=== PATIENT | male | born 1975 | race Caucasian/White ===

== ENCOUNTER 2021-11-21 09:52 | Inpatient (IN) | payer OTHER, SELFPAY ==
[2021-11-21] VITALS (13 sets, daily range): BP systolic 82–145; BP diastolic 37–67; PULSE 92–119; RESP 14–27; TEMP 36.9–37.9; O2SAT 24–100; BMI 28.1
--- NOTE | 2021-11-21 | ECG_ITS ---
Test Reason : ETHOL DETOX Blood Pressure : / mmHG Vent. Rate : 116 BPM Atrial Rate : 116 BPM P-R Int : 158 ms QRS Dur : 086 ms QT Int : 340 ms P-R-T Axes : 062 058 053 degrees QTc Int : 472 ms Sinus tachycardia Otherwise normal ECG No previous ECGs available Referred By: Generic ED Physician Electronically Signed By:ESTEFANIA CARCAMO
--- NOTE | ~2021-11-21 | CT_ITS ---
EXAMINATION: CT ABDOMEN AND PELVIS WITHOUT CONTRAST CLINICAL INFORMATION: Nausea, vomiting and low-grade fever COMPARISON: None TECHNIQUE: Multidetector volumetric imaging was performed from the superior aspect of the liver through the pubic symphysis. Sagittal and coronal reformatted images were obtained on the technologist's workstation. This CT examination was performed using dose optimization techniques as appropriate, variously including the following: *Automated exposure control *Adjustment of mA and/or kV according to patient size (this includes techniques or standardized protocols for targeted exams where dose is matched to indication/reason for exam; i.e. extremities or head) *Use of iterative reconstruction technique DLP: 535 mGy-cm FINDINGS: Exam is limited due to motion artifact. LUNG BASES: The visualized lung bases are unremarkable. LIVER, GALLBLADDER, AND BILIARY TREE: The liver is low in attenuation suggestive of fatty infiltration. No focal hepatic lesion or biliary ductal dilatation is present. The gallbladder is unremarkable with no evidence of radiopaque gallstones, gallbladder wall thickening, or obvious pericholecystic inflammatory changes. PANCREAS: Unremarkable. SPLEEN: Unremarkable. ADRENAL GLANDS: Unremarkable. KIDNEYS AND URETERS: The kidneys are normal in size, shape, and attenuation. No hydronephrosis, hydroureter, or calculi seen. No perinephric stranding. BLADDER: Unremarkable. GASTROINTESTINAL TRACT: The small and large bowel are unremarkable. The appendix is unremarkable. ABDOMINAL WALL: No significant hernia is appreciated. LYMPH NODES: Normal. VASCULAR: Unremarkable. PELVIC VISCERA: Unremarkable. OSSEOUS STRUCTURES: Unremarkable. CT/CT abdomen pelvis wo con IMPRESSION: Limited exam due to motion artifact. Fatty liver. Fleischner guidelines were followed.
--- NOTE | ~2021-11-21 | XR_ITS ---
EXAMINATION: XR CHEST CLINICAL INFORMATION: Fever COMPARISON: None TECHNIQUE: Portable upright AP view of the chest was obtained. FINDINGS: There are low lung volumes with inspiration to the right posterior eighth intercostal space. The lungs are clear and there is no airspace consolidation or groundglass opacity or effusion. The heart is within the limits of normal size. The vascularity is normal. The hilar and mediastinal contours and visualized bony structures are unremarkable. XR/XR chest 1V IMPRESSION: Unremarkable examination.
--- NOTE | ~2021-11-21 | CT_ITS ---
EXAMINATION: CT HEAD WITHOUT CONTRAST CLINICAL INFORMATION: Fall COMPARISON: None TECHNIQUE: Contiguous axial imaging was performed from the skull base to vertex without intravenous administration of contrast. Exam is limited due to motion artifact. Additional axial images were obtained. This CT examination was performed using dose optimization techniques as appropriate, variously including the following: *Automated exposure control *Adjustment of mA and/or kV according to patient size (this includes techniques or standardized protocols for targeted exams where dose is matched to indication/reason for exam; i.e. extremities or head) *Use of iterative reconstruction technique DLP: 1251 mGy-cm FINDINGS: There is no evidence of acute intracranial hemorrhage or territorial infarction. No abnormal mass effect or midline shift is seen. [place] to white matter differentiation is well preserved. No extra-axial fluid collections are identified. The ventricles are normal in size. There is no abnormal attenuation within the brain parenchyma. The osseous structures and soft tissues are normal. There are mild inflammatory changes in the floor of both maxillary sinuses. CT/CT head/brain wo con IMPRESSION: Limited exam due to motion artifact. No acute findings. Mild inflammatory changes in the maxillary sinuses.
[2021-11-21] MEDS: LORazepam 2 MG/ML VIAL IVPUSH ×2 (10:32→11:50)
[2021-11-21] MEDS: 0.9 % Sodium Chloride 1,000 ML 999 ML IV (10:57)
[2021-11-21 11:08] LABS: MANUAL DIFF FLAG NO
[2021-11-21 11:13] LABS: Basophils Percent Auto 0.2 % (0-2); Hematocrit 41.5 % (42.0-52.0); Hemoglobin 14.4 g/dl (14.0-18.0); Imm Gran Abs Auto 0.04 X10*3/uL (0.00-0.03); Imm Gran Pct Auto 0.4 % (0.0-0.4); Lymphocytes Absolute Auto 0.5 X10*3/uL (1.2-4.9); Lymphocytes Percent Auto 4.6 % (20-40); Mean Corpuscular HGB Conc 34.7 g/dl (31.0-36.0); Mean Corpuscular Hemoglobin 32.6 pg (27.0-33.0); Mean Corpuscular Volume 93.9 fL (80.0-98.0); Mean Platelet Volume 9.2 fL (9.4-12.4); Monocytes Absolute Auto 0.7 X10*3/uL (0.1-1.2); Monocytes Percent Auto 6.9 % (2-11); Neutrophils Absolute Auto 8.9 x10*3/uL (2.0-8.3); Neutrophils Percent Auto 87.9 % (45-73); Platelet Count 147 X10*3/uL (160-400); Red Blood Count 4.42 X10*6/uL (4.60-5.80); Red Cell Distribution Width 12.3 % (11.0-16.0); White Blood Count 10.2 X10*3/uL (4.8-10.8)
[2021-11-21 11:32] LABS: Ethanol < 10 mg/dL
[2021-11-21 11:34] LABS: Alanine Aminotransferase 69 U/L (0-40); Albumin Level 3.1 g/dL (3.5-5.0); Alkaline Phosphatase 89 U/L (39-117); Anion Gap 24 (12-20); Aspartate Amino Transferase 131 U/L (5-37); Bilirubin Direct 0.7 mg/dL (0.0-0.5); Bilirubin Total 1.2 mg/dL (0.0-1.0); Blood Urea Nitrogen 9 mg/dL (9-16); Calcium 8.5 mg/dL (8.4-10.2); Carbon Dioxide 17 mmol/L (22-29); Chloride 90 mmol/L (96-108); Creatinine Clr Calc Pharmacy 109.1; Estimated Glomerular Filt Rate > 60; Glucose Random 115 mg/dL (60-115); Lipase 51 U/L (8-78); Magnesium 1.8 mg/dL (1.6-2.6); Potassium 4.9 mmol/L (3.3-5.1); Sodium 126 mmol/L (135-145); Total Protein 6.4 g/dL (6.5-8.0)
[2021-11-21 11:35] LABS: Lactic Acid 10.1 mmol/L (0.5-2.0)
[2021-11-21 11:39] LABS: IDNOW Serial# 16C4AD1C
--- NOTE | 2021-11-21 11:39 | ED.GENADULT ---
HPI - General Adult General Chief complaint: General Medical <JOCELYN Haddad - Last Filed: 11/21/21 17:24> Stated complaint: ALCOHOL WITHDRAWAL <JOCELYN Haddad - Last Filed: 11/21/21 17:24> Time Seen by Provider: 11/21/21 10:21 <JOCELYN Haddad - Last Filed: 11/21/21 17:24> Source: patient <JOCELYN Haddad - Last Filed: 11/21/21 17:24> Mode of arrival: ambulatory <JOCELYN Haddad - Last Filed: 11/21/21 17:24> History of Present Illness HPI narrative: 46-year-old male with a PMH ETOH abuse presented to the ED complaining ETOH withdrawal, feeling tremulous, nausea, vomiting, diarrhea since last night. Admits to drinking 6-12 beers a day last drink around 22:00 last night. Also reports fall with head trauma about a week ago, denies LOC. 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 Denies other illicit drug use. Denies fever, chills, cough, CP/SOB, abdominal pain <JOCELYN Haddad - Last Filed: 11/21/21 17:24> Onset (ago): hour(s) <JOCELYN Haddad - Last Filed: 11/21/21 17:24> Related Data Home medications: Previous Rx's Medication Instructions Recorded folic acid 1 mg tablet 1 mg PO DAILY 30 Days #30 tab 11/24/21 naltrexone 50 mg tablet 50 mg PO DAILY #30 tab 11/24/21 thiamine HCl (vitamin B1) 100 mg 100 mg PO DAILY 30 Days #30 tab 11/24/21 tablet <JOCELYN Haddad - Last Filed: 11/21/21 17:24> Allergies/adverse reactions: Allergies Allergy/AdvReac Type Severity Reaction Status Date / Time No Known Drug Allergies Allergy Unknown Verified 11/21/21 10:19 <JOCELYN Haddad Last Filed: 11/21/21 17:24> Review of Systems Review of Systems: Constitutional: No Fever, No Chills, No Fatigue, No Malaise, +tremulous ENT/Mouth: No Ear Pain, No Nasal Congestion, No Sinus Pain, No Hoarseness, No sore throat, No Rhinorrhea Eyes: No Eye Pain, No Swelling, No Redness, No Foreign Body, No Discharge, No Vision Changes Cardiovascular: No Chest Pain, No SOB, No Edema, No Palpitations Respiratory: No Cough, No Sputum, No Dyspnea Gastrointestinal: + Nausea, + Vomiting, + Diarrhea, No Constipation, + Abdominal pain Genitourinary: No irregular bleeding, No Dysuria, No Urinary Frequency, No Hematuria, No Flank Pain, No Urinary Flow Changes Musculoskeletal: No joint pain, No Myalgias, No Joint Swelling Skin: + Skin Lesions, No rash Neuro: No Weakness, No Numbness, No Loss of Consciousness, No Dizziness, No Headache Psych: No Anxiety/Panic, No Depression, No SI/HI/AH/VH, No Social Issues <JOCELYN Haddad - Last Filed: 11/21/21 17:24> Yes all other systems are reviewed and are negative <JOCELYN Haddad - Last Filed: 11/21/21 17:24> Neurologic: Denies Abnormal speech present <JOCELYN Haddad - Last Filed: 11/21/21 17:24> [facility] Past Medical History Attestation statement: The following information was validated with the patient. <JOCELYN Haddad - Last Filed: 11/21/21 17:24> Social History Social History: Social History Household Members: Family Housing: House Do you presently have visiting nurse or other home services: No Alcohol intake: current Alcohol intake frequency: 3 or more drinks per day Alcohol type: beer Patient Tobacco Use Status: Current everyday Tobacco user Tobacco use type: Cigarette Cigarettes Per Day: 8 service: No <OJCELYN Haddad - Last Filed: 11/21/21 17:24> Physical Exam ED Vital Signs: Vital Signs - 24 hr 11/21/21 10:14 11/21/21 11:47 11/21/21 12:02 Temperature 99 F 100.2 F 100.1 F Pulse Rate 118 H 113 H 116 H Respiratory Rate 24 H 24 H 27 H Blood Pressure 139/56 L 94/40 L Pulse Oximetry 100 97 11/21/21 13:24 11/21/21 14:17 11/21/21 14:28 Temperature 98.4 F 98.6 F Pulse Rate 115 H 103 H Respiratory Rate 23 H 20 Blood Pressure 84/37 L 86/41 L 96/57 L Pulse Oximetry 97 94 11/21/21 15:17 11/21/21 15:21 11/21/21 15:54 Temperature Pulse Rate 100 Respiratory Rate 26 H Blood Pressure 82/44 L 86/45 L 92/54 L Pulse Oximetry 95 11/21/21 16:31 Temperature Pulse Rate 109 H Respiratory Rate 27 H Blood Pressure 93/51 L Pulse Oximetry 96 BMI result Body Mass Index 28.1 <JOCELYN Haddad - Last Filed: 11/21/21 17:24> Vital Signs - 24 hr 11/21/21 10:14 11/21/21 11:47 11/21/21 12:02 Temperature 99 F 100.2 F 100.1 F Pulse Rate 118 H 113 H 116 H Respiratory Rate 24 H 24 H 27 H Blood Pressure 139/56 L 94/40 L Pulse Oximetry 100 97 11/21/21 13:24 11/21/21 14:17 11/21/21 14:28 Temperature 98.4 F 98.6 F Pulse Rate 115 H 103 H Respiratory Rate 23 H 20 Blood Pressure 84/37 L 86/41 L 96/57 L Pulse Oximetry 97 94 11/21/21 15:17 11/21/21 15:21 11/21/21 15:54 Temperature Pulse Rate 100 Respiratory Rate 26 H Blood Pressure 82/44 L 86/45 L 92/54 L Pulse Oximetry 95 11/21/21 16:31 Temperature Pulse Rate 109 H Respiratory Rate 27 H Blood Pressure 93/51 L Pulse Oximetry 96 BMI result Body Mass Index 28.1 <Buck Duggan MD - Last Filed: 11/21/21 14:02> Const Other: + tremulous, diaphoretic, no tongue fasciculations <JOCELYN Haddad Last Filed: 11/21/21 17:24> General: cooperative, alert and awake <JOCELYN Haddad Last Filed: 11/21/21 17:24> Orientation/consciousness: patient oriented x3 <JOCELYN Haddad Last Filed: 11/21/21 17:24> Limitations: no limitations <JOCELYN Haddad Last Filed: 11/21/21 17:24> HENMT Head: Yes normal to inspection and Yes atraumatic <Silvia Alfaro PA - Last Filed: 11/21/21 17:24> Ears: hearing grossly normal bilaterally <Silvia Alfaro PA - Last Filed: 11/21/21 17:24> General nose exam: Normal external nose present <Silvia Alfaro MS - Last Filed: 11/21/21 17:24> Face and sinus: Yes normal facial exam <Silvia Alfaro PA - Last Filed: 11/21/21 17:24> Mouth: mucous membranes dry <Silvia Alfaro MS - Last Filed: 11/21/21 17:24> Eyes General: appearance normal, both eyes and all related structures <Silvia Alfaro PA - Last Filed: 11/21/21 17:24> EOM: EOMs intact bilaterally <Silvia Alfaro MS - Last Filed: 11/21/21 17:24> Neck Neck: Yes normal visual inspection and Yes no meningeal signs <Silvia Alfaro PA - Last Filed: 11/21/21 17:24> Resp Effort & Inspection: normal respiratory effort and no respiratory distress <Silvia Alfaro PA - Last Filed: 11/21/21 17:24> Auscultation: clear to auscultation bilaterally <Silvia Alfaro PA - Last Filed: 11/21/21 17:24> Cardio Rate: regular rate <Silvia Alfaro MS - Last Filed: 11/21/21 17:24> Heart sounds: S1 normal heart sound present and S2 normal heart sound present <Silvia Alfaro PA - Last Filed: 11/21/21 17:24> GI Inspection: Yes normal to inspection <Silvia Alfaro PA - Last Filed: 11/21/21 17:24> Palpation (GI): Soft to palpation, nontender, no guarding and not rigid <Silvia Alfaro PA - Last Filed: 11/21/21 17:24> Skin Other: + healing abrasions/scabs noted to right forehead and right eyebrow <Silvia Alfaro PA - Last Filed: 03/14/22 17:24> Rashes: no rashes <JOCELYN Haddad - Last Filed: 11/21/21 17:24> Neuro General: patient oriented x3, tone normal, moves all extremities, no meningeal signs, no focal motor deficits and CN's II-XI intact bilaterally <JOCELYN Haddad - Last Filed: 11/21/21 17:24> Cognition (Neuro): normal cognition <JOCELYN Haddad - Last Filed: 11/21/21 17:24> Speech: No Abnormal speech present <JOCELYN Haddad - Last Filed: 11/21/21 17:24> Extrem General: Yes normal to inspection and Yes no pedal edema <JOCELYN Haddad - Last Filed: 11/21/21 17:24> Course Course Course Narrative: 1143-- no leukocytosis. Hyponatremic to 126, bicarb low at 17 with an anion gap of 24 > likely from lactic acidosis of 10.1 and ketosis rather than severe sepsis -1153--patient spiked low-grade fever 100.2 > Blood cultures, additional IVF and empiric IV antibiotics ordered. likely from tremulousness -AST/ALT and bilirubin elevated likely from ETOH abuse -head CT without acute findings -1336--BP's low likely from volume depletion, still low suspicion for severe sepsis -1400-- Case d/w Dr. Duggan who evaluated patient with me, bedside US showing collapsible IVC, hypotension and lactic acidosis more c/w dehydration. Additional IVF ordered (4th Liter). Will consult nurse school -1433--CT/AP with fatty liver otherwise unremarkable -Case c/w nurse school Dr. Garcia, presentation c/w dehydration rather than sepsis, recommended initiation 200 cc/hour of LR at this time, patient does not need ICU level care <JOCELYN Haddad - Last Filed: 11/21/21 17:24> Reevaluation(s) Reevaluation #1: patient clinically not septic, appears to be in alcohol withdrawal, bedside Ultrasound show flat inferior vena cava, will continue with fluids and have patient evaluated by ICU attending. <Buck Duggan MD - Last Filed: 11/21/21 14:02> Time: 14:02 <Buck Duggan MD - Last Filed: 11/21/21 14:02> Medical Decision Making MDM Narrative Medical decision making narrative: 46-year-old male with a PMH ETOH abuse presented to the ED complaining ETOH withdrawal, feeling tremulous, nausea, vomiting, diarrhea since last night. On exam tachycardic, tachypneic, tremulous, diaphoretic, alert, no focal deficits, MALCOL[place]. Concern for EtOH withdrawal. Concern for dehydration/metabolic abnormalities. Lower concern for infectious etiology. Low concern for sepsis at this time. Plan: EKG, labs, UA, CXR, Head CT, CXR, IVF, Ativan, Phenobarb protocol <JOCELYN Haddad - Last Filed: 11/21/21 17:24> Medical Records Medical records reviewed: Yes I reviewed the patient's medical records. <JOCELYN Haddad - Last Filed: 11/21/21 17:24> Lab Data Lab results reviewed: Yes I reviewed the patient's lab results. <JOCELYN Haddad - Last Filed: 11/21/21 17:24> Result diagrams: : 11/21/21 11:03 11/23/21 06:10 <JOCELYN Haddad - Last Filed: 11/21/21 17:24> Labs: Lab Results 11/21/21 11/21/21 11/21/21 Range/Units 11:03 11:03 11:03 WBC 10.2 (4.8-10.8) X10*3/uL RBC 4.42 L (4.60-5.80) X10*6/uL Hgb 14.4 (14.0-18.0) g/dl Hct 41.5 L (42.0-52.0) % MCV 93.9 (80.0-98.0) fL MCH 32.6 (27.0-33.0) pg MCHC 34.7 (31.0-36.0) g/dl RDW 12.3 (11.0-16.0) % Plt Count 147 L (160-400) X10*3/uL MPV 9.2 L (9.4-12.4) fL Immature Gran % (Auto) 0.4 (0.0-0.4) % Neut % (Auto) 87.9 H (45-73) % Lymph % (Auto) 4.6 L (20-40) % [place] % (Auto) 6.9 (2-11) % Eos % (Auto) 0.0 (0-4) % Baso % (Auto) 0.2 (0-2) % Lymph # (Auto) 0.5 L (1.2-4.9) X10*3/uL [place] # (Auto) 0.7 (0.1-1.2) X10*3/uL Eos # (Auto) 0.0 (0.0-0.4) X10*3/uL Baso # (Auto) 0.0 (0.0-0.2) X10*3/uL Abs Immat Gran (auto) 0.04 H (0.00-0.03) X10*3/uL Absolute Neuts (auto) 8.9 H (2.0-8.3) x10*3/uL Absolute Nucleated RBC 0.000 (0.0-0.012) X10*3/uL Nucleated RBC % (auto) 0.0 (0.0-0.2) /100WBC VBG pH (7.32-7.43) VBG pCO2 mmHg VBG pO2 mmHg VBG HCO3 (22-26) mmol/L VBG O2 Saturation % VBG Base Excess mmol/L Sodium 126 L (135-145) mmol/L Potassium 4.9 (3.3-5.1) mmol/L Chloride 90 L (96-108) mmol/L Carbon Dioxide 17 L (22-29) mmol/L Anion Gap 24 H (12-20) BUN 9 (9-16) mg/dL Creatinine 0.97 (0.5-1.4) mg/dL Estim Creat Clear Calc 109.1 Estimated GFR > 60 Random Glucose 115 (60-115) mg/dL Osmolality (281-305) mosm/kg Lactic Acid (0.5-2.0) mmol/L Lactic Acid F/U @ 2Hr (0.5-2.0) mmol/L Calcium 8.5 (8.4-10.2) mg/dL Magnesium 1.8 (1.6-2.6) mg/dL Total Bilirubin 1.2 H (0.0-1.0) mg/dL Direct Bilirubin 0.7 H (0.0-0.5) mg/dL AST 131 H (5-37) U/L ALT 69 H (0-40) U/L Alkaline Phosphatase 89 (39-117) U/L Total Creatine Kinase (38-174) U/L Total Protein 6.4 L (6.5-8.0) g/dL Albumin 3.1 L (3.5-5.0) g/dL Lipase 51 (8-78) U/L Procalcitonin ng/mL Urine Color Urine Appearance Urine pH (5.0-8.0) Ur Specific [place] (1.005-1.025) Urine Protein (NEG-TRACE) MG/DL Urine Glucose (UA) (NEG) MG/DL Urine Ketones (NEG) MG/DL Urine Blood (NEG) Urine Nitrite (NEG) Ur Leukocyte Esterase (NEG) Urine Osmolality (373-1093) mosm/kg Salicylates < 5.0 L (15-30) mg/dL Urine Opiates Screen (Not Detect) Urine Fentanyl Screen (Not Detect) Acetaminophen < 1 (<30) mcg/mL Ur Barbiturates Screen (Not Detect) Ur Phencyclidine Scrn (Not Detect) Ur Amphetamines Screen (Not Detect) U Benzodiazepines Scrn (Not Detect) Urine Cocaine Screen (Not Detect) U Marijuana (THC) Screen (Not Detect) Ethyl Alcohol < 10 mg/dL COVID-19 ([facility]) (Negative) COVID-19 Clin Com Influenza Type A (DEBBY) (Negative) Influenza Type B (DEBBY) (Negative) Influenza A & B Note 11/21/21 11/21/21 11/21/21 Range/Units 11:03 11:03 11:04 WBC (4.8-10.8) X10*3/uL RBC (4.60-5.80) X10*6/uL Hgb (14.0-18.0) g/dl Hct (42.0-52.0) % MCV (80.0-98.0) fL MCH (27.0-33.0) pg MCHC (31.0-36.0) g/dl RDW (11.0-16.0) % Plt Count (160-400) X10*3/uL MPV (9.4-12.4) fL Immature Gran % (Auto) (0.0-0.4) % Neut % (Auto) (45-73) % Lymph % (Auto) (20-40) % [place] % (Auto) (2-11) % Eos % (Auto) (0-4) % Baso % (Auto) (0-2) % Lymph # (Auto) (1.2-4.9) X10*3/uL [place] # (Auto) (0.1-1.2) X10*3/uL Eos # (Auto) (0.0-0.4) X10*3/uL Baso # (Auto) (0.0-0.2) X10*3/uL Abs Immat Gran (auto) (0.00-0.03) X10*3/uL Absolute Neuts (auto) (2.0-8.3) x10*3/uL Absolute Nucleated RBC (0.0-0.012) X10*3/uL Nucleated RBC % (auto) (0.0-0.2) /100WBC VBG pH (7.32-7.43) VBG pCO2 mmHg VBG pO2 mmHg VBG HCO3 (22-26) mmol/L VBG O2 Saturation % VBG Base Excess mmol/L Sodium (135-145) mmol/L Potassium (3.3-5.1) mmol/L Chloride (96-108) mmol/L Carbon Dioxide (22-29) mmol/L Anion Gap (12-20) BUN (9-16) mg/dL Creatinine (0.5-1.4) mg/dL Estim Creat Clear Calc Estimated GFR Random Glucose (60-115) mg/dL Osmolality 268 L (281-305) mosm/kg Lactic Acid 10.1 H* (0.5-2.0) mmol/L Lactic Acid F/U @ 2Hr (0.5-2.0) mmol/L Calcium (8.4-10.2) mg/dL Magnesium (1.6-2.6) mg/dL Total Bilirubin (0.0-1.0) mg/dL Direct Bilirubin (0.0-0.5) mg/dL AST (5-37) U/L ALT (0-40) U/L Alkaline Phosphatase (39-117) U/L Total Creatine Kinase (38-174) U/L Total Protein (6.5-8.0) g/dL Albumin (3.5-5.0) g/dL Lipase (8-78) U/L Procalcitonin ng/mL Urine Color Urine Appearance Urine pH (5.0-8.0) Ur Specific [place] (1.005-1.025) Urine Protein (NEG-TRACE) MG/DL Urine Glucose (UA) (NEG) MG/DL Urine Ketones (NEG) MG/DL Urine Blood (NEG) Urine Nitrite (NEG) Ur Leukocyte Esterase (NEG) Urine Osmolality (373-1093) mosm/kg Salicylates (15-30) mg/dL Urine Opiates Screen (Not Detect) Urine Fentanyl Screen (Not Detect) Acetaminophen (<30) mcg/mL Ur Barbiturates Screen (Not Detect) Ur Phencyclidine Scrn (Not Detect) Ur Amphetamines Screen (Not Detect) U Benzodiazepines Scrn (Not Detect) Urine Cocaine Screen (Not Detect) U Marijuana (THC) Screen (Not Detect) Ethyl Alcohol mg/dL COVID-19 ([facility]) Negative (Negative) COVID-19 Clin Com See Note Influenza Type A (DEBBY) (Negative) Influenza Type B (DEBBY) (Negative) Influenza A & B Note 11/21/21 11/21/21 11/21/21 Range/Units 12:19 13:46 13:46 WBC (4.8-10.8) X10*3/uL RBC (4.60-5.80) X10*6/uL Hgb (14.0-18.0) g/dl Hct (42.0-52.0) % MCV (80.0-98.0) fL MCH (27.0-33.0) pg MCHC (31.0-36.0) g/dl RDW (11.0-16.0) % Plt Count (160-400) X10*3/uL MPV (9.4-12.4) fL Immature Gran % (Auto) (0.0-0.4) % Neut % (Auto) (45-73) % Lymph % (Auto) (20-40) % [place] % (Auto) (2-11) % Eos % (Auto) (0-4) % Baso % (Auto) (0-2) % Lymph # (Auto) (1.2-4.9) X10*3/uL [place] # (Auto) (0.1-1.2) X10*3/uL Eos # (Auto) (0.0-0.4) X10*3/uL Baso # (Auto) (0.0-0.2) X10*3/uL Abs Immat Gran (auto) (0.00-0.03) X10*3/uL Absolute Neuts (auto) (2.0-8.3) x10*3/uL Absolute Nucleated RBC (0.0-0.012) X10*3/uL Nucleated RBC % (auto) (0.0-0.2) /100WBC VBG pH (7.32-7.43) VBG pCO2 mmHg VBG pO2 mmHg VBG HCO3 (22-26) mmol/L VBG O2 Saturation % VBG Base Excess mmol/L Sodium (135-145) mmol/L Potassium (3.3-5.1) mmol/L Chloride (96-108) mmol/L Carbon Dioxide (22-29) mmol/L Anion Gap (12-20) BUN (9-16) mg/dL Creatinine (0.5-1.4) mg/dL Estim Creat Clear Calc Estimated GFR Random Glucose (60-115) mg/dL Osmolality (281-305) mosm/kg Lactic Acid Cancelled (0.5-2.0) mmol/L Lactic Acid F/U @ 2Hr 7.1 H* (0.5-2.0) mmol/L Calcium (8.4-10.2) mg/dL Magnesium (1.6-2.6) mg/dL Total Bilirubin (0.0-1.0) mg/dL Direct Bilirubin (0.0-0.5) mg/dL AST (5-37) U/L ALT (0-40) U/L Alkaline Phosphatase (39-117) U/L Total Creatine Kinase (38-174) U/L Total Protein (6.5-8.0) g/dL Albumin (3.5-5.0) g/dL Lipase (8-78) U/L Procalcitonin ng/mL Urine Color Urine Appearance Urine pH (5.0-8.0) Ur Specific [place] (1.005-1.025) Urine Protein (NEG-TRACE) MG/DL Urine Glucose (UA) (NEG) MG/DL Urine Ketones (NEG) MG/DL Urine Blood (NEG) Urine Nitrite (NEG) Ur Leukocyte Esterase (NEG) Urine Osmolality (373-1093) mosm/kg Salicylates (15-30) mg/dL Urine Opiates Screen (Not Detect) Urine Fentanyl Screen (Not Detect) Acetaminophen (<30) mcg/mL Ur Barbiturates Screen (Not Detect) Ur Phencyclidine Scrn (Not Detect) Ur Amphetamines Screen (Not Detect) U Benzodiazepines Scrn (Not Detect) Urine Cocaine Screen (Not Detect) U Marijuana (THC) Screen (Not Detect) Ethyl Alcohol mg/dL COVID-19 ([facility]) (Negative) COVID-19 Clin Com Influenza Type A (DEBBY) Negative (Negative) Influenza Type B (DEBBY) Negative (Negative) Influenza A & B Note See Note 11/21/21 11/21/21 11/21/21 Range/Units 14:52 14:55 14:57 WBC (4.8-10.8) X10*3/uL RBC (4.60-5.80) X10*6/uL Hgb (14.0-18.0) g/dl Hct (42.0-52.0) % MCV (80.0-98.0) fL MCH (27.0-33.0) pg MCHC (31.0-36.0) g/dl RDW (11.0-16.0) % Plt Count (160-400) X10*3/uL MPV (9.4-12.4) fL Immature Gran % (Auto) (0.0-0.4) % Neut % (Auto) (45-73) % Lymph % (Auto) (20-40) % [place] % (Auto) (2-11) % Eos % (Auto) (0-4) % Baso % (Auto) (0-2) % Lymph # (Auto) (1.2-4.9) X10*3/uL [place] # (Auto) (0.1-1.2) X10*3/uL Eos # (Auto) (0.0-0.4) X10*3/uL Baso # (Auto) (0.0-0.2) X10*3/uL Abs Immat Gran (auto) (0.00-0.03) X10*3/uL Absolute Neuts (auto) (2.0-8.3) x10*3/uL Absolute Nucleated RBC (0.0-0.012) X10*3/uL Nucleated RBC % (auto) (0.0-0.2) /100WBC VBG pH 7.51 H (7.32-7.43) VBG pCO2 29 mmHg VBG pO2 91 mmHg VBG HCO3 23 (22-26) mmol/L VBG O2 Saturation 98.0 % VBG Base Excess 1.9 mmol/L Sodium 128 L (135-145) mmol/L Potassium 4.5 (3.3-5.1) mmol/L Chloride 95 L (96-108) mmol/L Carbon Dioxide 23 (22-29) mmol/L Anion Gap 15 (12-20) BUN 9 (9-16) mg/dL Creatinine 0.85 (0.5-1.4) mg/dL Estim Creat Clear Calc 124.6 Estimated GFR > 60 Random Glucose 85 (60-115) mg/dL Osmolality (281-305) mosm/kg Lactic Acid (0.5-2.0) mmol/L Lactic Acid F/U @ 2Hr (0.5-2.0) mmol/L Calcium 7.9 L D (8.4-10.2) mg/dL Magnesium (1.6-2.6) mg/dL Total Bilirubin (0.0-1.0) mg/dL Direct Bilirubin (0.0-0.5) mg/dL AST (5-37) U/L ALT (0-40) U/L Alkaline Phosphatase (39-117) U/L Total Creatine Kinase 936 H (38-174) U/L Total Protein (6.5-8.0) g/dL Albumin (3.5-5.0) g/dL Lipase (8-78) U/L Procalcitonin 0.10 ng/mL Urine Color Urine Appearance Urine pH (5.0-8.0) Ur Specific [place] (1.005-1.025) Urine Protein (NEG-TRACE) MG/DL Urine Glucose (UA) (NEG) MG/DL Urine Ketones (NEG) MG/DL Urine Blood (NEG) Urine Nitrite (NEG) Ur Leukocyte Esterase (NEG) Urine Osmolality (373-1093) mosm/kg Salicylates (15-30) mg/dL Urine Opiates Screen (Not Detect) Urine Fentanyl Screen (Not Detect) Acetaminophen (<30) mcg/mL Ur Barbiturates Screen (Not Detect) Ur Phencyclidine Scrn (Not Detect) Ur Amphetamines Screen (Not Detect) U Benzodiazepines Scrn (Not Detect) Urine Cocaine Screen (Not Detect) U Marijuana (THC) Screen (Not Detect) Ethyl Alcohol mg/dL COVID-19 ([facility]) (Negative) COVID-19 Clin Com Influenza Type A (DEBBY) (Negative) Influenza Type B (DEBBY) (Negative) Influenza A & B Note 11/21/21 11/21/21 11/21/21 Range/Units 15:29 15:29 15:29 WBC (4.8-10.8) X10*3/uL RBC (4.60-5.80) X10*6/uL Hgb (14.0-18.0) g/dl Hct (42.0-52.0) % MCV (80.0-98.0) fL MCH (27.0-33.0) pg MCHC (31.0-36.0) g/dl RDW (11.0-16.0) % Plt Count (160-400) X10*3/uL MPV (9.4-12.4) fL Immature Gran % (Auto) (0.0-0.4) % Neut % (Auto) (45-73) % Lymph % (Auto) (20-40) % [place] % (Auto) (2-11) % Eos % (Auto) (0-4) % Baso % (Auto) (0-2) % Lymph # (Auto) (1.2-4.9) X10*3/uL [place] # (Auto) (0.1-1.2) X10*3/uL Eos # (Auto) (0.0-0.4) X10*3/uL Baso # (Auto) (0.0-0.2) X10*3/uL Abs Immat Gran (auto) (0.00-0.03) X10*3/uL Absolute Neuts (auto) (2.0-8.3) x10*3/uL Absolute Nucleated RBC (0.0-0.012) X10*3/uL Nucleated RBC % (auto) (0.0-0.2) /100WBC VBG pH (7.32-7.43) VBG pCO2 mmHg VBG pO2 mmHg VBG HCO3 (22-26) mmol/L VBG O2 Saturation % VBG Base Excess mmol/L Sodium (135-145) mmol/L Potassium (3.3-5.1) mmol/L Chloride (96-108) mmol/L Carbon Dioxide (22-29) mmol/L Anion Gap (12-20) BUN (9-16) mg/dL Creatinine (0.5-1.4) mg/dL Estim Creat Clear Calc Estimated GFR Random Glucose (60-115) mg/dL Osmolality (281-305) mosm/kg Lactic Acid (0.5-2.0) mmol/L Lactic Acid F/U @ 2Hr (0.5-2.0) mmol/L Calcium (8.4-10.2) mg/dL Magnesium (1.6-2.6) mg/dL Total Bilirubin (0.0-1.0) mg/dL Direct Bilirubin (0.0-0.5) mg/dL AST (5-37) U/L ALT (0-40) U/L Alkaline Phosphatase (39-117) U/L Total Creatine Kinase (38-174) U/L Total Protein (6.5-8.0) g/dL Albumin (3.5-5.0) g/dL Lipase (8-78) U/L Procalcitonin ng/mL Urine Color YELLOW Urine Appearance CLEAR Urine pH 6.0 (5.0-8.0) Ur Specific [place] 1.025 (1.005-1.025) Urine Protein TRACE (NEG-TRACE) MG/DL Urine Glucose (UA) NEG (NEG) MG/DL Urine Ketones 5 (NEG) MG/DL Urine Blood NEG (NEG) Urine Nitrite NEG (NEG) Ur Leukocyte Esterase NEG (NEG) Urine Osmolality 516 ([phone]) mosm/kg Salicylates (15-30) mg/dL Urine Opiates Screen Not Detected (Not Detect) Urine Fentanyl Screen Not Detected (Not Detect) Acetaminophen (<30) mcg/mL Ur Barbiturates Screen POSITIVE H (Not Detect) Ur Phencyclidine Scrn Not Detected (Not Detect) Ur Amphetamines Screen Not Detected (Not Detect) U Benzodiazepines Scrn Not Detected (Not Detect) Urine Cocaine Screen Not Detected (Not Detect) U Marijuana (THC) Screen Not Detected (Not Detect) Ethyl Alcohol mg/dL COVID-19 ([facility]) (Negative) COVID-19 Clin Com Influenza Type A ([facility]) (Negative) Influenza Type B (DEBBY) (Negative) Influenza A & B Note <JOCELYN Haddad - Last Filed: 11/21/21 17:24> Lab Results 11/21/21 11/21/21 11/21/21 Range/Units 11:03 11:03 11:03 WBC 10.2 (4.8-10.8) X10*3/uL RBC 4.42 L (4.60-5.80) X10*6/uL Hgb 14.4 (14.0-18.0) g/dl Hct 41.5 L (42.0-52.0) % MCV 93.9 (80.0-98.0) fL MCH 32.6 (27.0-33.0) pg MCHC 34.7 (31.0-36.0) g/dl RDW 12.3 (11.0-16.0) % Plt Count 147 L (160-400) X10*3/uL MPV 9.2 L (9.4-12.4) fL Immature Gran % (Auto) 0.4 (0.0-0.4) % Neut % (Auto) 87.9 H (45-73) % Lymph % (Auto) 4.6 L (20-40) % [place] % (Auto) 6.9 (2-11) % Eos % (Auto) 0.0 (0-4) % Baso % (Auto) 0.2 (0-2) % Lymph # (Auto) 0.5 L (1.2-4.9) X10*3/uL [place] # (Auto) 0.7 (0.1-1.2) X10*3/uL Eos # (Auto) 0.0 (0.0-0.4) X10*3/uL Baso # (Auto) 0.0 (0.0-0.2) X10*3/uL Abs Immat Gran (auto) 0.04 H (0.00-0.03) X10*3/uL Absolute Neuts (auto) 8.9 H (2.0-8.3) x10*3/uL Absolute Nucleated RBC 0.000 (0.0-0.012) X10*3/uL Nucleated RBC % (auto) 0.0 (0.0-0.2) /100WBC VBG pH (7.32-7.43) VBG pCO2 mmHg VBG pO2 mmHg VBG HCO3 (22-26) mmol/L VBG O2 Saturation % VBG Base Excess mmol/L Sodium 126 L (135-145) mmol/L Potassium 4.9 (3.3-5.1) mmol/L Chloride 90 L (96-108) mmol/L Carbon Dioxide 17 L (22-29) mmol/L Anion Gap 24 H (12-20) BUN 9 (9-16) mg/dL Creatinine 0.97 (0.5-1.4) mg/dL Estim Creat Clear Calc 109.1 Estimated GFR > 60 Random Glucose 115 (60-115) mg/dL Osmolality (281-305) mosm/kg Lactic Acid (0.5-2.0) mmol/L Lactic Acid F/U @ 2Hr (0.5-2.0) mmol/L Calcium 8.5 (8.4-10.2) mg/dL Magnesium 1.8 (1.6-2.6) mg/dL Total Bilirubin 1.2 H (0.0-1.0) mg/dL Direct Bilirubin 0.7 H (0.0-0.5) mg/dL AST 131 H (5-37) U/L ALT 69 H (0-40) U/L Alkaline Phosphatase 89 (39-117) U/L Total Creatine Kinase (38-174) U/L Total Protein 6.4 L (6.5-8.0) g/dL Albumin 3.1 L (3.5-5.0) g/dL Lipase 51 (8-78) U/L Procalcitonin ng/mL Urine Color Urine Appearance Urine pH (5.0-8.0) Ur Specific [place] (1.005-1.025) Urine Protein (NEG-TRACE) MG/DL Urine Glucose (UA) (NEG) MG/DL Urine Ketones (NEG) MG/DL Urine Blood (NEG) Urine Nitrite (NEG) Ur Leukocyte Esterase (NEG) Urine Osmolality (373-1093) mosm/kg Salicylates < 5.0 L (15-30) mg/dL Urine Opiates Screen (Not Detect) Urine Fentanyl Screen (Not Detect) Acetaminophen < 1 (<30) mcg/mL Ur Barbiturates Screen (Not Detect) Ur Phencyclidine Scrn (Not Detect) Ur Amphetamines Screen (Not Detect) U Benzodiazepines Scrn (Not Detect) Urine Cocaine Screen (Not Detect) U Marijuana (THC) Screen (Not Detect) Ethyl Alcohol < 10 mg/dL COVID-19 ([facility]) (Negative) COVID-19 Clin Com Influenza Type A ([facility]) (Negative) Influenza Type B ([facility]BBY) (Negative) Influenza A & B Note 11/21/21 11/21/21 11/21/21 Range/Units 11:03 11:03 11:04 WBC (4.8-10.8) X10*3/uL RBC (4.60-5.80) X10*6/uL Hgb (14.0-18.0) g/dl Hct (42.0-52.0) % MCV (80.0-98.0) fL MCH (27.0-33.0) pg MCHC (31.0-36.0) g/dl RDW (11.0-16.0) % Plt Count (160-400) X10*3/uL MPV (9.4-12.4) fL Immature Gran % (Auto) (0.0-0.4) % Neut % (Auto) (45-73) % Lymph % (Auto) (20-40) % [place] % (Auto) (2-11) % Eos % (Auto) (0-4) % Baso % (Auto) (0-2) % Lymph # (Auto) (1.2-4.9) X10*3/uL [place] # (Auto) (0.1-1.2) X10*3/uL Eos # (Auto) (0.0-0.4) X10*3/uL Baso # (Auto) (0.0-0.2) X10*3/uL Abs Immat Gran (auto) (0.00-0.03) X10*3/uL Absolute Neuts (auto) (2.0-8.3) x10*3/uL Absolute Nucleated RBC (0.0-0.012) X10*3/uL Nucleated RBC % (auto) (0.0-0.2) /100WBC VBG pH (7.32-7.43) VBG pCO2 mmHg VBG pO2 mmHg VBG HCO3 (22-26) mmol/L VBG O2 Saturation % VBG Base Excess mmol/L Sodium (135-145) mmol/L Potassium (3.3-5.1) mmol/L Chloride (96-108) mmol/L Carbon Dioxide (22-29) mmol/L Anion Gap (12-20) BUN (9-16) mg/dL Creatinine (0.5-1.4) mg/dL Estim Creat Clear Calc Estimated GFR Random Glucose (60-115) mg/dL Osmolality 268 L (281-305) mosm/kg Lactic Acid 10.1 H* (0.5-2.0) mmol/L Lactic Acid F/U @ 2Hr (0.5-2.0) mmol/L Calcium (8.4-10.2) mg/dL Magnesium (1.6-2.6) mg/dL Total Bilirubin (0.0-1.0) mg/dL Direct Bilirubin (0.0-0.5) mg/dL AST (5-37) U/L ALT (0-40) U/L Alkaline Phosphatase (39-117) U/L Total Creatine Kinase (38-174) U/L Total Protein (6.5-8.0) g/dL Albumin (3.5-5.0) g/dL Lipase (8-78) U/L Procalcitonin ng/mL Urine Color Urine Appearance Urine pH (5.0-8.0) Ur Specific [place] (1.005-1.025) Urine Protein (NEG-TRACE) MG/DL Urine Glucose (UA) (NEG) MG/DL Urine Ketones (NEG) MG/DL Urine Blood (NEG) Urine Nitrite (NEG) Ur Leukocyte Esterase (NEG) Urine Osmolality (373-1093) mosm/kg Salicylates (15-30) mg/dL Urine Opiates Screen (Not Detect) Urine Fentanyl Screen (Not Detect) Acetaminophen (<30) mcg/mL Ur Barbiturates Screen (Not Detect) Ur Phencyclidine Scrn (Not Detect) Ur Amphetamines Screen (Not Detect) U Benzodiazepines Scrn (Not Detect) Urine Cocaine Screen (Not Detect) U Marijuana (THC) Screen (Not Detect) Ethyl Alcohol mg/dL COVID-19 ([facility]) Negative (Negative) COVID-19 Clin Com See Note Influenza Type A (DEBBY) (Negative) Influenza Type B (DEBBY) (Negative) Influenza A & B Note 11/21/21 11/21/21 11/21/21 Range/Units 12:19 13:46 13:46 WBC (4.8-10.8) X10*3/uL RBC (4.60-5.80) X10*6/uL Hgb (14.0-18.0) g/dl Hct (42.0-52.0) % MCV (80.0-98.0) fL MCH (27.0-33.0) pg MCHC (31.0-36.0) g/dl RDW (11.0-16.0) % Plt Count (160-400) X10*3/uL MPV (9.4-12.4) fL Immature Gran % (Auto) (0.0-0.4) % Neut % (Auto) (45-73) % Lymph % (Auto) (20-40) % [place] % (Auto) (2-11) % Eos % (Auto) (0-4) % Baso % (Auto) (0-2) % Lymph # (Auto) (1.2-4.9) X10*3/uL [place] # (Auto) (0.1-1.2) X10*3/uL Eos # (Auto) (0.0-0.4) X10*3/uL Baso # (Auto) (0.0-0.2) X10*3/uL Abs Immat Gran (auto) (0.00-0.03) X10*3/uL Absolute Neuts (auto) (2.0-8.3) x10*3/uL Absolute Nucleated RBC (0.0-0.012) X10*3/uL Nucleated RBC % (auto) (0.0-0.2) /100WBC VBG pH (7.32-7.43) VBG pCO2 mmHg VBG pO2 mmHg VBG HCO3 (22-26) mmol/L VBG O2 Saturation % VBG Base Excess mmol/L Sodium (135-145) mmol/L Potassium (3.3-5.1) mmol/L Chloride (96-108) mmol/L Carbon Dioxide (22-29) mmol/L Anion Gap (12-20) BUN (9-16) mg/dL Creatinine (0.5-1.4) mg/dL Estim Creat Clear Calc Estimated GFR Random Glucose (60-115) mg/dL Osmolality (281-305) mosm/kg Lactic Acid Cancelled (0.5-2.0) mmol/L Lactic Acid F/U @ 2Hr 7.1 H* (0.5-2.0) mmol/L Calcium (8.4-10.2) mg/dL Magnesium (1.6-2.6) mg/dL Total Bilirubin (0.0-1.0) mg/dL Direct Bilirubin (0.0-0.5) mg/dL AST (5-37) U/L ALT (0-40) U/L Alkaline Phosphatase (39-117) U/L Total Creatine Kinase (38-174) U/L Total Protein (6.5-8.0) g/dL Albumin (3.5-5.0) g/dL Lipase (8-78) U/L Procalcitonin ng/mL Urine Color Urine Appearance Urine pH (5.0-8.0) Ur Specific [place] (1.005-1.025) Urine Protein (NEG-TRACE) MG/DL Urine Glucose (UA) (NEG) MG/DL Urine Ketones (NEG) MG/DL Urine Blood (NEG) Urine Nitrite (NEG) Ur Leukocyte Esterase (NEG) Urine Osmolality (373-1093) mosm/kg Salicylates (15-30) mg/dL Urine Opiates Screen (Not Detect) Urine Fentanyl Screen (Not Detect) Acetaminophen (<30) mcg/mL Ur Barbiturates Screen (Not Detect) Ur Phencyclidine Scrn (Not Detect) Ur Amphetamines Screen (Not Detect) U Benzodiazepines Scrn (Not Detect) Urine Cocaine Screen (Not Detect) U Marijuana (THC) Screen (Not Detect) Ethyl Alcohol mg/dL COVID-19 ([facility]) (Negative) COVID-19 Clin Com Influenza Type A (DEBBY) Negative (Negative) Influenza Type B (DEBBY) Negative (Negative) Influenza A & B Note See Note 03/14/22 03/14/22 03/14/22 Range/Units 14:52 14:55 14:57 WBC (4.8-10.8) X10*3/uL RBC (4.60-5.80) X10*6/uL Hgb (14.0-18.0) g/dl Hct (42.0-52.0) % MCV (80.0-98.0) fL MCH (27.0-33.0) pg MCHC (31.0-36.0) g/dl RDW (11.0-16.0) % Plt Count (160-400) X10*3/uL MPV (9.4-12.4) fL Immature Gran % (Auto) (0.0-0.4) % Neut % (Auto) (45-73) % Lymph % (Auto) (20-40) % [place] % (Auto) (2-11) % Eos % (Auto) (0-4) % Baso % (Auto) (0-2) % Lymph # (Auto) (1.2-4.9) X10*3/uL [place] # (Auto) (0.1-1.2) X10*3/uL Eos # (Auto) (0.0-0.4) X10*3/uL Baso # (Auto) (0.0-0.2) X10*3/uL Abs Immat Gran (auto) (0.00-0.03) X10*3/uL Absolute Neuts (auto) (2.0-8.3) x10*3/uL Absolute Nucleated RBC (0.0-0.012) X10*3/uL Nucleated RBC % (auto) (0.0-0.2) /100WBC VBG pH 7.51 H (7.32-7.43) VBG pCO2 29 mmHg VBG pO2 91 mmHg VBG HCO3 23 (22-26) mmol/L VBG O2 Saturation 98.0 % VBG Base Excess 1.9 mmol/L Sodium 128 L (135-145) mmol/L Potassium 4.5 (3.3-5.1) mmol/L Chloride 95 L (96-108) mmol/L Carbon Dioxide 23 (22-29) mmol/L Anion Gap 15 (12-20) BUN 9 (9-16) mg/dL Creatinine 0.85 (0.5-1.4) mg/dL Estim Creat Clear Calc 124.6 Estimated GFR > 60 Random Glucose 85 (60-115) mg/dL Osmolality (281-305) mosm/kg Lactic Acid (0.5-2.0) mmol/L Lactic Acid F/U @ 2Hr (0.5-2.0) mmol/L Calcium 7.9 L D (8.4-10.2) mg/dL Magnesium (1.6-2.6) mg/dL Total Bilirubin (0.0-1.0) mg/dL Direct Bilirubin (0.0-0.5) mg/dL AST (5-37) U/L ALT (0-40) U/L Alkaline Phosphatase (39-117) U/L Total Creatine Kinase 936 H (38-174) U/L Total Protein (6.5-8.0) g/dL Albumin (3.5-5.0) g/dL Lipase (8-78) U/L Procalcitonin 0.10 ng/mL Urine Color Urine Appearance Urine pH (5.0-8.0) Ur Specific [place] (1.005-1.025) Urine Protein (NEG-TRACE) MG/DL Urine Glucose (UA) (NEG) MG/DL Urine Ketones (NEG) MG/DL Urine Blood (NEG) Urine Nitrite (NEG) Ur Leukocyte Esterase (NEG) Urine Osmolality (373-1093) mosm/kg Salicylates (15-30) mg/dL Urine Opiates Screen (Not Detect) Urine Fentanyl Screen (Not Detect) Acetaminophen (<30) mcg/mL Ur Barbiturates Screen (Not Detect) Ur Phencyclidine Scrn (Not Detect) Ur Amphetamines Screen (Not Detect) U Benzodiazepines Scrn (Not Detect) Urine Cocaine Screen (Not Detect) U Marijuana (THC) Screen (Not Detect) Ethyl Alcohol mg/dL COVID-19 ([facility]) (Negative) COVID-19 Clin Com Influenza Type A (DEBBY) (Negative) Influenza Type B (DEBBY) (Negative) Influenza A & B Note 11/21/21 11/21/21 11/21/21 Range/Units 15:29 15:29 15:29 WBC (4.8-10.8) X10*3/uL RBC (4.60-5.80) X10*6/uL Hgb (14.0-18.0) g/dl Hct (42.0-52.0) % MCV (80.0-98.0) fL MCH (27.0-33.0) pg MCHC (31.0-36.0) g/dl RDW (11.0-16.0) % Plt Count (160-400) X10*3/uL MPV (9.4-12.4) fL Immature Gran % (Auto) (0.0-0.4) % Neut % (Auto) (45-73) % Lymph % (Auto) (20-40) % [place] % (Auto) (2-11) % Eos % (Auto) (0-4) % Baso % (Auto) (0-2) % Lymph # (Auto) (1.2-4.9) X10*3/uL [place] # (Auto) (0.1-1.2) X10*3/uL Eos # (Auto) (0.0-0.4) X10*3/uL Baso # (Auto) (0.0-0.2) X10*3/uL Abs Immat Gran (auto) (0.00-0.03) X10*3/uL Absolute Neuts (auto) (2.0-8.3) x10*3/uL Absolute Nucleated RBC (0.0-0.012) X10*3/uL Nucleated RBC % (auto) (0.0-0.2) /100WBC VBG pH (7.32-7.43) VBG pCO2 mmHg VBG pO2 mmHg VBG HCO3 (22-26) mmol/L VBG O2 Saturation % VBG Base Excess mmol/L Sodium (135-145) mmol/L Potassium (3.3-5.1) mmol/L Chloride (96-108) mmol/L Carbon Dioxide (22-29) mmol/L Anion Gap (12-20) BUN (9-16) mg/dL Creatinine (0.5-1.4) mg/dL Estim Creat Clear Calc Estimated GFR Random Glucose (60-115) mg/dL Osmolality (281-305) mosm/kg Lactic Acid (0.5-2.0) mmol/L Lactic Acid F/U @ 2Hr (0.5-2.0) mmol/L Calcium (8.4-10.2) mg/dL Magnesium (1.6-2.6) mg/dL Total Bilirubin (0.0-1.0) mg/dL Direct Bilirubin (0.0-0.5) mg/dL AST (5-37) U/L ALT (0-40) U/L Alkaline Phosphatase (39-117) U/L Total Creatine Kinase (38-174) U/L Total Protein (6.5-8.0) g/dL Albumin (3.5-5.0) g/dL Lipase (8-78) U/L Procalcitonin ng/mL Urine Color YELLOW Urine Appearance CLEAR Urine pH 6.0 (5.0-8.0) Ur Specific [place] 1.025 (1.005-1.025) Urine Protein TRACE (NEG-TRACE) MG/DL Urine Glucose (UA) NEG (NEG) MG/DL Urine Ketones 5 (NEG) MG/DL Urine Blood NEG (NEG) Urine Nitrite NEG (NEG) Ur Leukocyte Esterase NEG (NEG) Urine Osmolality 516 (373-1093) mosm/kg Salicylates (15-30) mg/dL Urine Opiates Screen Not Detected (Not Detect) Urine Fentanyl Screen Not Detected (Not Detect) Acetaminophen (<30) mcg/mL Ur Barbiturates Screen POSITIVE H (Not Detect) Ur Phencyclidine Scrn Not Detected (Not Detect) Ur Amphetamines Screen Not Detected (Not Detect) U Benzodiazepines Scrn Not Detected (Not Detect) Urine Cocaine Screen Not Detected (Not Detect) U Marijuana (THC) Screen Not Detected (Not Detect) Ethyl Alcohol mg/dL COVID-19 ([facility]) (Negative) COVID-19 Clin Com Influenza Type A (DEBBY) (Negative) Influenza Type B (DEBBY) (Negative) Influenza A & B Note <Buck Duggan MD - Last Filed: 11/21/21 14:02> ECG Data Attestation: I personally reviewed and interpreted this ECG as follows: <JOCELYN Haddad - Last Filed: 11/21/21 17:24> Interpretation: EKG sinus tachycardia at a rate of 116. QRS 86. QTC 472. No STEMI. <JOCELYN Haddad - Last Filed: 11/21/21 17:24> Critical Care Time Critical Care Time Critical Care Time: Yes <JOCELYN Haddad - Last Filed: 11/21/21 17:24> Total Critical Care Time: 60 <JOCELYN Haddad - Last Filed: 11/21/21 17:24> Attestation: I have personally provided critical care time exclusive of time spent on separately billable procedures. Time includes review of lab data, radiology results, discussion with consultants, and monitoring for potential decompensation. Intervention performed as documented. <JOCELYN Haddad - Last Filed: 11/21/21 17:24> Discharge Plan Discharge Clinical Impression: Alcohol withdrawal, Dehydration <JOCELYN Haddad - Last Filed: 11/21/21 17:24> Patient Disposition: Admitted As Inpatient <JOCELYN Haddad - Last Filed: 11/21/21 17:24> Interventions: Admission Worksheet (ED) Last Done: 11/21/21 19:42 <JOCELYN Haddad - Last Filed: 11/21/21 17:24> Discharge Date/Time: 11/21/21 20:17 <JOCELYN Haddad - Last Filed: 11/21/21 17:24>
[2021-11-21 11:43] LABS: COVID-19 Test Negative (Negative)
[2021-11-21] MEDS: Lactated Ringers 1,000 ML 999 ML IV ×3 (11:47→13:42)
[2021-11-21] MEDS: Ketorolac Tromethamine 30 MG/ML VIAL IVPUSH (12:01)
--- NOTE | 2021-11-21 12:01 | PHA.MEDREC ---
Pharmacy Consult ? Medication Reconciliation Pharmacy has completed the medication reconciliation. No known home medications. Risa Pizano, FlakoD
[2021-11-21] MEDS: Piperacillin Sodium/Tazobactam 3.375 GM in 0.9 % Sodium Chloride 50 ML IV ×2 (12:36→20:42)
[2021-11-21 12:43] LABS: IDNOW Serial# 08D9AD1C; Influenza A Negative (Negative); Influenza B2 Negative (Negative)
[2021-11-21 13:06] LABS: Acetaminophen LAB < 1 mcg/mL (<30); Reflex Lactate? Lactic Acid Added; Salicylate < 5.0 mg/dL (15-30)
[2021-11-21] MEDS: Thiamine HCL 100 MG in 0.9 % Sodium Chloride 100 ML 202 MG IV (13:14)
[2021-11-21] MEDS: PHENobarbitaL sodium 130 MG/ML VIAL 350 MG IM (13:15)
[2021-11-21] MEDS: Folic Acid 1 MG in 0.9 % Sodium Chloride 50 ML 100.4 MG IV (13:18)
--- NOTE | 2021-11-21 13:40 | PC.NURSE ---
pt pressure 90/41, 84/37 and 81/38 - Silvia BANKS made aware, Liter of LR ordered. pt placed in trendelenburg
[2021-11-21 15:03] LABS: Venous Blood Gas Refer to POC result
[2021-11-21 15:05] LABS: VBG Base Excess 1.9 mmol/L; VBG HCO3 23 mmol/L (22-26); VBG pCO2 29 mmHg; VBG pH 7.51 (7.32-7.43); VBG pO2 91 mmHg
--- NOTE | 2021-11-21 15:10 | PC.NURSE ---
pt sig. other [phone]
[2021-11-21 15:26] LABS: Osmolality, Serum 268 mosm/kg (281-305)
[2021-11-21 15:38] LABS: Anion Gap 15 (12-20); Blood Urea Nitrogen 9 mg/dL (9-16); Calcium 7.9 mg/dL (8.4-10.2); Carbon Dioxide 23 mmol/L (22-29); Chloride 95 mmol/L (96-108); Creatinine Clr Calc Pharmacy 124.6; Estimated Glomerular Filt Rate > 60; Glucose Random 85 mg/dL (60-115); Potassium 4.5 mmol/L (3.3-5.1); Sodium 128 mmol/L (135-145)
[2021-11-21 15:51] LABS: Appearance Urine CLEAR; Color Urine YELLOW; Glucose Urine UA NEG (NEG); Leukocyte Esterase Urine NEG (NEG); Nitrite Urine NEG (NEG); Specific Gravity - Urine 1.025 (1.005-1.025); Urine Blood NEG (NEG); Urine Ketones 5 MG/DL (NEG); Urine Protein TRACE MG/DL (NEG-TRACE)
[2021-11-21 15:59] LABS: Amphetamine Screen Urine Not Detected (Not Detect); Barbiturates, Urine POSITIVE (Not Detect); Benzodiazepines Screen Urine Not Detected (Not Detect); Cannabinoid Screen Urine Not Detected (Not Detect); Cocaine Screen Urine Not Detected (Not Detect); Fentanyl, urine Not Detected (Not Detect); Opiate Screen Urine Not Detected (Not Detect); Phencyclidine Screen Urine Not Detected (Not Detect)
[2021-11-21 16:03] LABS: ~Lactic Acid-LAB USE ONLY 7.1 mmol/L (0.5-2.0)
[2021-11-21 16:04] LABS: Reflex Lactate? 2 Y
[2021-11-21 16:20] LABS: Osmolality Urine 516 mosm/kg (373-1093)
[2021-11-21] MEDS: Lactated Ringers 1,000 ML 200 ML IVCONT ×2 (16:36→21:32)
[2021-11-21] MEDS: PHENobarbitaL sodium 130 MG/ML VIAL 263 MG IM ×2 (17:33→20:43)
--- NOTE | 2021-11-21 17:52 | PC.NURSE ---
plan for pt to be admit to the hospital. he is aware of plan. CIWA completed, it was a 5. pt is oriented x3 however at times is forgetful. romo placed and pt with brick colored output. two IV access. pt is cooperative and pleasant at this time.
--- NOTE | 2021-11-21 18:21 | PM.IMHP ---
History of Present Illness Date of Service: 11/21/21 Attending physician on admission: Hayden Mancilla Chief Complaint: Hypotension, lactic acidosis, alcohol withdrawal, 46-year-old male with no significant past medical history, does not follow with any doctor, every day drinks alcohol 6 packs beer as per patient-came to the hospital because patient is feeling tremulous, as nausea vomiting and diarrhea last night- he said he also vomited few times but did not bring up any blood, diarrhea was also mostly watery, denies any abdominal pain. Denies any fever or chills. Denies any cough or phlegm or weakness numbness or any blurry vision or headache. Also he fell down a week ago he said his slipped on snow and has a bruise on the right eyebrow area. Denies any loss of consciousness at that time. Currently denies any nausea vomiting or diarrhea-says it stopped. He is not eating well from at least 2-3 days, keep drinking alcohol, and had above diarrhea and nausea vomiting last night. In the ED patient found to have hypotension, also tachycardia, tachypnea as well as lactic acidosis: Low-grade temp 100.2*f Hypotension and tachycardia and lactic acidosis-was thought to be related to dehydration/starvation ketosis/alcoholic ketoacidosis. ED physician discussed the case with ICU: Case discussed-thought to be less likely due to sepsis rather than dehydration. Patient received 3 L of fluid-lactic acidosis and bicarb is improving. In addition patient was found to have hyponatremia Serum and urine osmolality added Stool studies also added. Chest x-ray negative, CT head seems fine, UA negative, CT of abdomen: Grossly fine except fatty liver infiltration. Past medical history: None as per the patient Social history: Patient lives with his , smokes half pack a day, alcohol every day as above. No recreation drug use. Patient denies any surgical history. Denies any medication allergy Review of Systems Review of Systems: As above. Yes all other systems are reviewed and are negative PMFSH Pertinent family history: denies any sick contacts , no hx of alcohol in family. Social History Alcohol intake: current Alcohol intake frequency: 3 or more drinks per day Alcohol type: beer Patient Tobacco Use Status: Current everyday Tobacco user Use of substances other than those prescribed or required for medical reasons: No Advance Directives: No Advance Directives Information Provided: No Meds Allergies Allergy/AdvReac Type Severity Reaction Status Date / Time No Known Drug Allergies Allergy Unknown Verified 11/21/21 10:19 Active Medications: Current Medications Thiamine HCl 100 mg/ Sodium (Chloride) 101 mls @ 202 mls/hr IV DAILY [facility] Last Infusion: 11/21/21 14:14 Dose: Infused Documented by: Lactated Ringer's (Lr) 1,000 mls @ 200 mls/hr IVCONT .Q5H [facility] Last Admin: 11/21/21 16:36 Dose: 200 mls/hr Documented by: Medication (No Benzodiazepines) 1 each MISCELLANE DAILY [facility] Pharmacy Consult (Consult Rx Perform Med Rec) 1 each MISCELLANE ONCE PRN PRN Reason: Consult order Pharmacy Consult (Consult Rx Perform Med Rec) 1 each MISCELLANE ONCE PRN PRN Reason: Consult order Phenobarbital (Phenobarbital 15 Mg Tablet) 45 mg PO BID [facility]; Protocol Stop: 11/23/21 21:01 Phenobarbital (Phenobarbital 30 Mg Tablet) 30 mg PO BID [facility]; Protocol Stop: 11/25/21 21:01 Phenobarbital (Phenobarbital 15 Mg Tablet) 15 mg PO DAILY [facility]; Protocol Stop: 11/27/21 09:01 Phenobarbital Sodium (Phenobarbital Sodium 130 Mg/Ml Vial) 263 mg IM ONCE ONE; Protocol Stop: 11/21/21 19:01 Sodium Chloride (0.9 % Sodium Chloride Flush 3 Ml Syringe) 3 ml IVFLUSH QSHIFT [facility] Home Medications Medication Instructions Recorded Confirmed Last Taken Type No Known Home Meds 11/21/21 11/21/21 Unknown History Physical Exam Vital Signs and Narrative: Vital Signs: Last Vital Signs Temp 98.6 F 11/21/21 14:17 Pulse 103 H 11/21/21 17:32 Resp 14 11/21/21 17:32 BP 106/50 L 11/21/21 17:32 Pulse Ox 96 11/21/21 16:31 BMI result Body Mass Index 28.1 Appearance: Alert.? Oriented X3.? Tremulous and anxious Eyes: Pupils equal, round and reactive to light.? Sclera nonicteric.?has bruise above the right eyebrow. ENT: Pharynx normal.? Moist mucous membranes. cvs: rrr, [id number] , no murmur res: clear to auscultation ,no rhonchii or wheezing abd: no rebound or guarding ,nt, bs present. ext pulses present , no cyanosis. neuro: axo3 , nonfocal, tramulous /anxious Results Labs CBC and Chem 7: 11/21/21 11:03 11/21/21 14:55 Labs: Laboratory Results - last 24 hr 11/21/21 11/21/21 11/21/21 11:03 11:03 11:03 MCV 93.9 MCH 32.6 MCHC 34.7 RDW 12.3 Plt Count 147 L MPV 9.2 L Immature Gran % (Auto) 0.4 Neut % (Auto) 87.9 H Lymph % (Auto) 4.6 L [place] % (Auto) 6.9 Eos % (Auto) 0.0 Baso % (Auto) 0.2 Lymph # (Auto) 0.5 L [place] # (Auto) 0.7 Eos # (Auto) 0.0 Baso # (Auto) 0.0 Abs Immat Gran (auto) 0.04 H Absolute Neuts (auto) 8.9 H Absolute Nucleated RBC 0.000 Nucleated RBC % (auto) 0.0 VBG pH VBG pCO2 VBG pO2 VBG HCO3 VBG O2 Saturation VBG Base Excess Anion Gap 24 H Estim Creat Clear Calc 109.1 Estimated GFR > 60 Random Glucose 115 Osmolality Lactic Acid Lactic Acid F/U @ 2Hr Calcium 8.5 Magnesium 1.8 Total Bilirubin 1.2 H Direct Bilirubin 0.7 H AST 131 H ALT 69 H Alkaline Phosphatase 89 Total Creatine Kinase Total Protein 6.4 L Albumin 3.1 L Lipase 51 Urine Color Urine Appearance Urine pH Ur Specific [place] Urine Protein Urine Glucose (UA) Urine Ketones Urine Blood Urine Nitrite Ur Leukocyte Esterase Urine Osmolality Salicylates < 5.0 L Urine Opiates Screen Urine Fentanyl Screen Acetaminophen < 1 Ur Barbiturates Screen Ur Phencyclidine Scrn Ur Amphetamines Screen U Benzodiazepines Scrn Urine Cocaine Screen U Marijuana (THC) Screen Ethyl Alcohol < 10 COVID-19 ([facility]) COVID-19 Clin Com Influenza Type A ([facility]) Influenza Type B (DEBBY) Influenza A & B Note 11/21/21 11/21/21 11/21/21 11:03 11:03 11:04 MCV MCH MCHC RDW Plt Count MPV Immature Gran % (Auto) Neut % (Auto) Lymph % (Auto) [place] % (Auto) Eos % (Auto) Baso % (Auto) Lymph # (Auto) [place] # (Auto) Eos # (Auto) Baso # (Auto) Abs Immat Gran (auto) Absolute Neuts (auto) Absolute Nucleated RBC Nucleated RBC % (auto) VBG pH VBG pCO2 VBG pO2 VBG HCO3 VBG O2 Saturation VBG Base Excess Anion Gap Estim Creat Clear Calc Estimated GFR Random Glucose Osmolality 268 L Lactic Acid 10.1 H* Lactic Acid F/U @ 2Hr Calcium Magnesium Total Bilirubin Direct Bilirubin AST ALT Alkaline Phosphatase Total Creatine Kinase Total Protein Albumin Lipase Urine Color Urine Appearance Urine pH Ur Specific [place] Urine Protein Urine Glucose (UA) Urine Ketones Urine Blood Urine Nitrite Ur Leukocyte Esterase Urine Osmolality Salicylates Urine Opiates Screen Urine Fentanyl Screen Acetaminophen Ur Barbiturates Screen Ur Phencyclidine Scrn Ur Amphetamines Screen U Benzodiazepines Scrn Urine Cocaine Screen U Marijuana (THC) Screen Ethyl Alcohol COVID-19 ([facility]) Negative COVID-19 Clin Com See Note Influenza Type A ([facility]) Influenza Type B (DEBBY) Influenza A & B Note 11/21/21 11/21/21 11/21/21 12:19 13:46 13:46 MCV MCH MCHC RDW Plt Count MPV Immature Gran % (Auto) Neut % (Auto) Lymph % (Auto) [place] % (Auto) Eos % (Auto) Baso % (Auto) Lymph # (Auto) [place] # (Auto) Eos # (Auto) Baso # (Auto) Abs Immat Gran (auto) Absolute Neuts (auto) Absolute Nucleated RBC Nucleated RBC % (auto) VBG pH VBG pCO2 VBG pO2 VBG HCO3 VBG O2 Saturation VBG Base Excess Anion Gap Estim Creat Clear Calc Estimated GFR Random Glucose Osmolality Lactic Acid Cancelled Lactic Acid F/U @ 2Hr 7.1 H* Calcium Magnesium Total Bilirubin Direct Bilirubin AST ALT Alkaline Phosphatase Total Creatine Kinase Total Protein Albumin Lipase Urine Color Urine Appearance Urine pH Ur Specific [place] Urine Protein Urine Glucose (UA) Urine Ketones Urine Blood Urine Nitrite Ur Leukocyte Esterase Urine Osmolality Salicylates Urine Opiates Screen Urine Fentanyl Screen Acetaminophen Ur Barbiturates Screen Ur Phencyclidine Scrn Ur Amphetamines Screen U Benzodiazepines Scrn Urine Cocaine Screen U Marijuana (THC) Screen Ethyl Alcohol COVID-19 ([facility]) COVID-19 Clin Com Influenza Type A ([facility]) Negative Influenza Type B (DEBBY) Negative Influenza A & B Note See Note 11/21/21 11/21/21 11/21/21 14:55 14:57 15:29 MCV MCH MCHC RDW Plt Count MPV Immature Gran % (Auto) Neut % (Auto) Lymph % (Auto) [place] % (Auto) Eos % (Auto) Baso % (Auto) Lymph # (Auto) [place] # (Auto) Eos # (Auto) Baso # (Auto) Abs Immat Gran (auto) Absolute Neuts (auto) Absolute Nucleated RBC Nucleated RBC % (auto) VBG pH 7.51 H VBG pCO2 29 VBG pO2 91 VBG HCO3 23 VBG O2 Saturation 98.0 VBG Base Excess 1.9 Anion Gap 15 Estim Creat Clear Calc 124.6 Estimated GFR > 60 Random Glucose 85 Osmolality Lactic Acid Lactic Acid F/U @ 2Hr Calcium 7.9 L D Magnesium Total Bilirubin Direct Bilirubin AST ALT Alkaline Phosphatase Total Creatine Kinase 936 H Total Protein Albumin Lipase Urine Color YELLOW Urine Appearance CLEAR Urine pH 6.0 Ur Specific [place] 1.025 Urine Protein TRACE Urine Glucose (UA) NEG Urine Ketones 5 Urine Blood NEG Urine Nitrite NEG Ur Leukocyte Esterase NEG Urine Osmolality Salicylates Urine Opiates Screen Urine Fentanyl Screen Acetaminophen Ur Barbiturates Screen Ur Phencyclidine Scrn Ur Amphetamines Screen U Benzodiazepines Scrn Urine Cocaine Screen U Marijuana (THC) Screen Ethyl Alcohol COVID-19 ([facility]) COVID-19 Clin Com Influenza Type A ([facility]) Influenza Type B ([facility]) Influenza A & B Note 11/21/21 11/21/21 15:29 15:29 MCV MCH MCHC RDW Plt Count MPV Immature Gran % (Auto) Neut % (Auto) Lymph % (Auto) [place] % (Auto) Eos % (Auto) Baso % (Auto) Lymph # (Auto) [place] # (Auto) Eos # (Auto) Baso # (Auto) Abs Immat Gran (auto) Absolute Neuts (auto) Absolute Nucleated RBC Nucleated RBC % (auto) VBG pH VBG pCO2 VBG pO2 VBG HCO3 VBG O2 Saturation VBG Base Excess Anion Gap Estim Creat Clear Calc Estimated GFR Random Glucose Osmolality Lactic Acid Lactic Acid F/U @ 2Hr Calcium Magnesium Total Bilirubin Direct Bilirubin AST ALT Alkaline Phosphatase Total Creatine Kinase Total Protein Albumin Lipase Urine Color Urine Appearance Urine pH Ur Specific [place] Urine Protein Urine Glucose (UA) Urine Ketones Urine Blood Urine Nitrite Ur Leukocyte Esterase Urine Osmolality 516 Salicylates Urine Opiates Screen Not Detected Urine Fentanyl Screen Not Detected Acetaminophen Ur Barbiturates Screen POSITIVE H Ur Phencyclidine Scrn Not Detected Ur Amphetamines Screen Not Detected U Benzodiazepines Scrn Not Detected Urine Cocaine Screen Not Detected U Marijuana (THC) Screen Not Detected Ethyl Alcohol COVID-19 ([facility]) COVID-19 Clin Com Influenza Type A ([facility]) Influenza Type B ([facility]) Influenza A & B Note Imaging Radiologist's Impressions: Impressions Head CT 11/21/21 11:01 IMPRESSION: Limited exam due to motion artifact. No acute findings. Mild inflammatory changes in the maxillary sinuses. Chest X-Ray 11/21/21 12:50 IMPRESSION: Unremarkable examination. Abdomen/Pelvis CT 11/21/21 13:12 IMPRESSION: Limited exam due to motion artifact. Fatty liver. Fleischner guidelines were followed. Assessment and Plan (1) Alcohol withdrawal: Status: Acute (2) Dehydration: Status: Acute (3) Pneumonitis: Status: Acute Plan 46-year-old male with history of alcohol abuse, smoker-came to the hospital because of hypotension, dehydration, lactic acidosis, alcohol withdrawal. 1. Alcohol withdrawal: Mild low-grade temp thought to be related to alcohol withdrawal. Mild elevated LFTs possible related to alcohol CIWA scale Started on phenobarb protocol, thiamine, folic acid. 2. Hypotension/hypovolemia: Improving patient already got for 3 L fluid and afterwards started on 200 mL/hour Monitor blood pressure closely. 3. Tachycardia probably related to alcohol withdrawals, improving 4. Lactic acidosis: Multifactorial-dehydration/starvation ketosis/alcohol ketoacidosis might be contributing too Improving PH: 7.51 Continue to monitor Less likely due to sepsis 5. Hyponatremia:? Beer potomania Monitor BMP closely Nephro evaluation added. 6. Nausea vomiting diarrhea: Seems to be resolved currently as per patient. Stool studies ordered. 7. Smoker: Added nicotine patch 8. possible aspirtional pneumonitis as per ed : added procalcitonin level,blood cultutres Seems less likely currently since patient does not in does cough or phlegm or any new symptoms, but patient is poor historian, will add Zosyn currently until blood culture and procalcitonin comes back. Will add id evaluation 9. Rhabdomyolysis: Probably related to recent fall Continue IV fluids, monitor CPK in a.m. Above management discussed with the patient in detail length she understand and in agreement with the above plan, time spent 70 minute patient is full code. Currently considering multiple above-mentioned medical issues including alcohol withdrawal, hypokalemia, dehydration, rhabdomyolysis: Patient possibly benefit from to midnight stays. Quality Stroke Does the patient have a stroke diagnosis?: No VTE Prior VTE?: No VTE Risk Level:: Medical - moderate - high VTE Device Contraindication: N/A - Device Ordered VTE Drug Contraindication: N/A - Med Ordered
[2021-11-21 18:45] LABS: ~Lactic Acid-LAB USE ONLY 2.2 mmol/L (0.5-2.0)
[2021-11-21 20:30] LABS: Anion Gap 13 (12-20); Blood Urea Nitrogen 10 mg/dL (9-16); Calcium 8.2 mg/dL (8.4-10.2); Carbon Dioxide 25 mmol/L (22-29); Chloride 96 mmol/L (96-108); Creatinine Clr Calc Pharmacy 129.1; Estimated Glomerular Filt Rate > 60; Glucose Random 73 mg/dL (60-115); Potassium 3.8 mmol/L (3.3-5.1); Sodium 130 mmol/L (135-145)
[2021-11-21] MEDS: Enoxaparin Sodium 40 MG/0.4 ML SYRINGE SUBCUT (20:42)
[2021-11-21] MEDS: 0.9 % Sodium Chloride Flush 3 ML SYRINGE IVFLUSH (20:44)
[2021-11-22] VITALS (7 sets, daily range): BP systolic 120–162; BP diastolic 70–83; PULSE 76–83; RESP 16–17; TEMP 36.7–37.7; O2SAT 93–96
[2021-11-22] MEDS: Piperacillin Sodium/Tazobactam 3.375 GM in 0.9 % Sodium Chloride 50 ML IV ×2 (01:07→06:37)
[2021-11-22] MEDS: Lactated Ringers 1,000 ML 200 ML IVCONT ×4 (02:55→23:01)
[2021-11-22] MEDS: PHENobarbitaL 15 MG TABLET 45 MG PO ×2 (08:39→21:22)
[2021-11-22] MEDS: Thiamine HCL 100 MG in 0.9 % Sodium Chloride 100 ML 202 MG IV (08:43)
[2021-11-22] MEDS: 0.9 % Sodium Chloride Flush 3 ML SYRINGE IVFLUSH ×2 (08:43→23:59)
[2021-11-22 09:01] LABS: Anion Gap 11 (12-20); Blood Urea Nitrogen 8 mg/dL (9-16); Calcium 7.9 mg/dL (8.4-10.2); Carbon Dioxide 26 mmol/L (22-29); Chloride 99 mmol/L (96-108); Creatinine Clr Calc Pharmacy 124.6; Estimated Glomerular Filt Rate > 60; Glucose Random 97 mg/dL (60-115); Potassium 3.2 mmol/L (3.3-5.1); Sodium 133 mmol/L (135-145)
--- NOTE | 2021-11-22 10:12 | MHC.CM.PN ---
Male 46 DX ETOH W/D He lives with his family. He is independent all functional mobility. A HCP has been documented and placed on his chart. He has named his S.O. He does not recall the name of his PCP. The [facility] list of PCPs has been provided to the Patient. DP home no services family transport.
--- NOTE | 2021-11-22 10:20 | PM.CNNEP ---
History of Present Illness Reason for Consult Consult date: 11/22/21 Chief Complaint Chief complaint: Hypotension Dehydration Alcohol Withdrawal Diarrhe History of Present Illness Narrative: 46-year-old male who drinks alcohol 6 packs beer a day presented to hospital as he was feeling tremulous with nausea , vomiting and diarrhea . He denied any fever, chills, blurry vision or headache. He had not been eating well from at least 2-3 days prior to presentation but kept drinking alcohol. In the ER he was found to have hypotension, tachycardia, tachypnea as well as lactic acidosis with low-grade temp 100.2 F. He was also found to have hyponatremia. He was admitted for further management. Nephrology has been consulted to assist in his clinical care during his current hospital stay. Review of Systems Review of Systems Yes all other systems are reviewed and are negative PMFSH Social History Social History Household Members: Family Housing: House Do you presently have visiting nurse or other home services: No Alcohol intake: current Alcohol intake frequency: 3 or more drinks per day Alcohol type: beer Patient Tobacco Use Status: Current everyday Tobacco user Tobacco use type: Cigarette Cigarettes Per Day: 8 service: No Meds Allergies Allergy/AdvReac Type Severity Reaction Status Date / Time No Known Drug Allergies Allergy Unknown Verified 11/21/21 10:19 Active Medications: Current Medications Enoxaparin Sodium (Enoxaparin Sodium 40 Mg/0.4 Ml Syringe) 40 mg SUBCUT Q24H [facility] Last Admin: 11/21/21 20:42 Dose: 40 mg Documented by: Thiamine HCl 100 mg/ Sodium (Chloride) 101 mls @ 202 mls/hr IV DAILY [facility] Last Admin: 11/22/21 08:43 Dose: 202 mls/hr Documented by: Lactated Ringer's (Lr) 1,000 mls @ 200 mls/hr IVCONT .Q5H [facility] Last Admin: 11/22/21 02:55 Dose: 200 mls/hr Documented by: Medication (No Benzodiazepines) 1 each MISCELLANE DAILY [facility] Nicotine (Nicotine 21 Mg Patch.Td24) 21 mg TRANSDERMA DAILY [facility] Last Admin: 11/21/21 20:43 Dose: Not Given Documented by: Pharmacy Consult (Consult Rx Perform Med Rec) 1 each MISCELLANE ONCE PRN PRN Reason: Consult order Pharmacy Consult (Consult Rx Perform Med Rec) 1 each MISCELLANE ONCE PRN PRN Reason: Consult order Phenobarbital (Phenobarbital 15 Mg Tablet) 45 mg PO BID [facility]; Protocol Stop: 11/23/21 21:01 Last Admin: 11/22/21 08:39 Dose: 45 mg Documented by: Phenobarbital (Phenobarbital 30 Mg Tablet) 30 mg PO BID [facility]; Protocol Stop: 11/25/21 21:01 Phenobarbital (Phenobarbital 15 Mg Tablet) 15 mg PO DAILY [facility]; Protocol Stop: 11/27/21 09:01 Sodium Chloride (0.9 % Sodium Chloride Flush 3 Ml Syringe) 3 ml IVFLUSH QSHIFT [facility] Last Admin: 11/22/21 08:43 Dose: 3 ml Documented by: Home Medications Medication Instructions Recorded Confirmed Last Taken Type No Known Home Meds 11/21/21 11/21/21 Unknown History Physical Exam Vital Signs: Last Vital Signs Temp 98.2 F 11/22/21 08:00 Pulse 78 11/22/21 08:00 Resp 16 11/22/21 08:00 BP 128/71 11/22/21 08:00 Pulse Ox 94 11/22/21 08:00 BMI result Body Mass Index 28.1 Const General: no acute distress Eyes EOM: EOMs intact bilaterally Neck Neck: Yes supple Resp Auscultation: diminished lung sounds Cardio Rate: regular rate GI Palpation (GI): Soft to palpation Neuro General: moves all extremities Results Lab Results Result Diagrams: 11/21/21 11:03 11/22/21 08:39 Lab results: Chemistry 11/21/21 11/21/21 11/21/21 11:03 14:55 20:10 Sodium 126 L 128 L 130 L Potassium 4.9 4.5 3.8 Carbon Dioxide 17 L 23 25 BUN 9 9 10 Creatinine 0.97 0.85 0.82 Calcium 8.5 7.9 L D 8.2 L 11/22/21 08:39 Sodium 133 L Potassium 3.2 L Carbon Dioxide 26 BUN 8 L Creatinine 0.85 Calcium 7.9 L Hematology 11/21/21 11:03 WBC 10.2 Hgb 14.4 Plt Count 147 L Urinalysis 11/21/21 15:29 Urine Color YELLOW Urine Appearance CLEAR Urine pH 6.0 Ur Specific [place] 1.025 Urine Protein TRACE Urine Glucose (UA) NEG Urine Ketones 5 Urine Blood NEG Urine Nitrite NEG Ur Leukocyte Esterase NEG Urine Studies 11/21/21 15:29 Urine Osmolality 516 Assessment and Plan (1) Hyponatremia: Status: Acute Plan Likely hypovolemic hyponatremia Clinically improved; DDx Beer Potomania Renal functions good; Vol status improving Potassium replacement to keep it over 4 C/W rest of current supportive care for now Shall closely follow Procedures Date of Service Date of Service: 11/22/21
--- NOTE | 2021-11-22 11:40 | HO.PM.IMPN ---
Subjective Subjective Date of Service: 11/22/21 Review of Systems follow-up alcohol withdrawal Still with some tremors Denies nausea, vomiting, diarrhea Physical Exam Vital Signs: Vital Signs: Last Vital Signs Temp 98.2 F 11/22/21 08:00 Pulse 78 11/22/21 08:00 Resp 16 11/22/21 08:00 BP 128/71 11/22/21 08:00 Pulse Ox 94 11/22/21 08:00 BMI result Body Mass Index 28.1 Appearing in no acute distress lung sounds are clear to auscultation heart regular rate rhythm, clear S1, S2 positive bowel sounds, abdomen is soft, nontender neuro noted tremors Objective Data Active Medications Enoxaparin Sodium (Enoxaparin Sodium 40 Mg/0.4 Ml Syringe) 40 mg SUBCUT Q24H [facility] Last Admin: 11/21/21 20:42 Dose: 40 mg Documented by: RICKEY Thiamine HCl 100 mg/ Sodium (Chloride) 101 mls @ 202 mls/hr IV DAILY [facility] Last Infusion: 11/22/21 11:24 Dose: 0 mls/hr Documented by: ROSMERY Lactated Ringer's (Lr) 1,000 mls @ 200 mls/hr IVCONT .Q5H [facility] Last Admin: 11/22/21 02:55 Dose: 200 mls/hr Documented by: RICKEY Medication (No Benzodiazepines) 1 each MISCELLANE DAILY [facility] Nicotine (Nicotine 21 Mg Patch.Td24) 21 mg TRANSDERMA DAILY [facility] Last Admin: 11/22/21 11:24 Dose: Not Given Documented by: ROSMERY Non-Admin Reason: Patient Refused Pharmacy Consult (Consult Rx Perform Med Rec) 1 each MISCELLANE ONCE PRN PRN Reason: Consult order Pharmacy Consult (Consult Rx Perform Med Rec) 1 each MISCELLANE ONCE PRN PRN Reason: Consult order Phenobarbital (Phenobarbital 15 Mg Tablet) 45 mg PO BID [facility]; Protocol Stop: 11/23/21 21:01 Last Admin: 11/22/21 08:39 Dose: 45 mg Documented by: ROSMERY Phenobarbital (Phenobarbital 30 Mg Tablet) 30 mg PO BID [facility]; Protocol Stop: 11/25/21 21:01 Phenobarbital (Phenobarbital 15 Mg Tablet) 15 mg PO DAILY [facility]; Protocol Stop: 11/27/21 09:01 Sodium Chloride (0.9 % Sodium Chloride Flush 3 Ml Syringe) 3 ml IVFLUSH QSHIFT [facility] Last Admin: 11/22/21 08:43 Dose: 3 ml Documented by: ROSMERY Labs CBC & Chem 7: 11/21/21 11:03 11/22/21 08:39 Labs: Laboratory Results - last 24 hr 11/21/21 11/21/21 11/21/21 11:03 11:03 11:04 VBG pH VBG pCO2 VBG pO2 VBG HCO3 VBG O2 Saturation VBG Base Excess Anion Gap Estim Creat Clear Calc Estimated GFR Random Glucose Osmolality 268 L Lactic Acid Lactic Acid F/U @ 2Hr Lactic Acid F/U @ 4Hr Calcium Total Creatine Kinase Procalcitonin Urine Color Urine Appearance Urine pH Ur Specific [place] Urine Protein Urine Glucose (UA) Urine Ketones Urine Blood Urine Nitrite Ur Leukocyte Esterase Urine Osmolality Salicylates < 5.0 L Urine Opiates Screen Urine Fentanyl Screen Acetaminophen < 1 Ur Barbiturates Screen Ur Phencyclidine Scrn Ur Amphetamines Screen U Benzodiazepines Scrn Urine Cocaine Screen U Marijuana (THC) Screen COVID-19 ([facility]) Negative COVID-19 Clin Com See Note Influenza Type A ([facility]) Influenza Type B ([facility]) Influenza A & B Note 11/21/21 11/21/21 11/21/21 12:19 13:46 13:46 VBG pH VBG pCO2 VBG pO2 VBG HCO3 VBG O2 Saturation VBG Base Excess Anion Gap Estim Creat Clear Calc Estimated GFR Random Glucose Osmolality Lactic Acid Cancelled Lactic Acid F/U @ 2Hr 7.1 H* Lactic Acid F/U @ 4Hr Calcium Total Creatine Kinase Procalcitonin Urine Color Urine Appearance Urine pH Ur Specific [place] Urine Protein Urine Glucose (UA) Urine Ketones Urine Blood Urine Nitrite Ur Leukocyte Esterase Urine Osmolality Salicylates Urine Opiates Screen Urine Fentanyl Screen Acetaminophen Ur Barbiturates Screen Ur Phencyclidine Scrn Ur Amphetamines Screen U Benzodiazepines Scrn Urine Cocaine Screen U Marijuana (THC) Screen COVID-19 ([facility]) COVID-19 Clin Com Influenza Type A ([facility]) Negative Influenza Type B ([facility]) Negative Influenza A & B Note See Note 11/21/21 11/21/21 11/21/21 14:52 14:55 14:57 VBG pH 7.51 H VBG pCO2 29 VBG pO2 91 VBG HCO3 23 VBG O2 Saturation 98.0 VBG Base Excess 1.9 Anion Gap 15 Estim Creat Clear Calc 124.6 Estimated GFR > 60 Random Glucose 85 Osmolality Lactic Acid Lactic Acid F/U @ 2Hr Lactic Acid F/U @ 4Hr Calcium 7.9 L D Total Creatine Kinase 936 H Procalcitonin 0.10 Urine Color Urine Appearance Urine pH Ur Specific [place] Urine Protein Urine Glucose (UA) Urine Ketones Urine Blood Urine Nitrite Ur Leukocyte Esterase Urine Osmolality Salicylates Urine Opiates Screen Urine Fentanyl Screen Acetaminophen Ur Barbiturates Screen Ur Phencyclidine Scrn Ur Amphetamines Screen U Benzodiazepines Scrn Urine Cocaine Screen U Marijuana (THC) Screen COVID-19 ([facility]) COVID-19 Clin Com Influenza Type A ([facility]) Influenza Type B ([facility]) Influenza A & B Note 11/21/21 11/21/21 11/21/21 15:29 15:29 15:29 VBG pH VBG pCO2 VBG pO2 VBG HCO3 VBG O2 Saturation VBG Base Excess Anion Gap Estim Creat Clear Calc Estimated GFR Random Glucose Osmolality Lactic Acid Lactic Acid F/U @ 2Hr Lactic Acid F/U @ 4Hr Calcium Total Creatine Kinase Procalcitonin Urine Color YELLOW Urine Appearance CLEAR Urine pH 6.0 Ur Specific [place] 1.025 Urine Protein TRACE Urine Glucose (UA) NEG Urine Ketones 5 Urine Blood NEG Urine Nitrite NEG Ur Leukocyte Esterase NEG Urine Osmolality 516 Salicylates Urine Opiates Screen Not Detected Urine Fentanyl Screen Not Detected Acetaminophen Ur Barbiturates Screen POSITIVE H Ur Phencyclidine Scrn Not Detected Ur Amphetamines Screen Not Detected U Benzodiazepines Scrn Not Detected Urine Cocaine Screen Not Detected U Marijuana (THC) Screen Not Detected COVID-19 ([facility]) COVID-19 Clin Com Influenza Type A ([facility]) Influenza Type B ([facility]Y) Influenza A & B Note 11/21/21 11/21/21 11/22/21 18:17 20:10 08:39 VBG pH VBG pCO2 VBG pO2 VBG HCO3 VBG O2 Saturation VBG Base Excess Anion Gap 13 11 L Estim Creat Clear Calc 129.1 124.6 Estimated GFR > 60 > 60 Random Glucose 73 97 Osmolality Lactic Acid Lactic Acid F/U @ 2Hr Lactic Acid F/U @ 4Hr 2.2 H* Calcium 8.2 L 7.9 L Total Creatine Kinase Procalcitonin Urine Color Urine Appearance Urine pH Ur Specific [place] Urine Protein Urine Glucose (UA) Urine Ketones Urine Blood Urine Nitrite Ur Leukocyte Esterase Urine Osmolality Salicylates Urine Opiates Screen Urine Fentanyl Screen Acetaminophen Ur Barbiturates Screen Ur Phencyclidine Scrn Ur Amphetamines Screen U Benzodiazepines Scrn Urine Cocaine Screen U Marijuana (THC) Screen COVID-19 ([facility]) COVID-19 Clin Com Influenza Type A ([facility]) Influenza Type B ([facility]) Influenza A & B Note Assessment and Plan (1) Hyponatremia: Status: Acute Plan 46-year-old male with history of alcohol abuse, smoker-came to the hospital because of hypotension, dehydration, lactic acidosis, alcohol withdrawal. Alcohol withdrawal, still with some tremors Started on phenobarb protocol, thiamine, folic acid. Transaminitis. Secondary to alcohol abuse Hypotension/hypovolemia. Resolved IV fluids Monitor blood pressure closely. Tachycardia. Likely secondary to alcohol withdrawal Improving Lactic acidosis. Multifactorial-dehydration/starvation ketosis/alcohol ketoacidosis might be contributing too Improving Continue to monitor Hyponatremia ?? Beer potomania Hypovolemic hyponatremia Slowly improving Monitor BMP closely seen and evaluated by Nephrology Smoker NRT, discussed importance of smoking cessation Rhabdomyolysis, mild Probably related to recent fall Continue IV fluids, monitor CPK in a.m. DVT prophylaxis with Lovenox Attending Dr. Stephens Currently considering multiple above-mentioned medical issues including alcohol withdrawal, hypokalemia, dehydration, rhabdomyolysis:? Patient possibly benefit from two midnight stays. Quality Stroke Does the patient have a stroke diagnosis?: No VTE Prior VTE?: No VTE Risk Level:: Medical - moderate - high VTE Device Contraindication: N/A - Device Ordered VTE Drug Contraindication: N/A - Med Ordered
[2021-11-22] MEDS: Potassium Chloride ER 20 MEQ TAB.ER.PRT 40 MEQ PO (13:04)
--- NOTE | 2021-11-22 16:18 | MHC.RECOVRN ---
Met with pt in 483 after consult placed to CARE Team for alcohol use. Pt reports alcohol use, 6+ beers daily x 2 months. Prior to that, pt reports occasional alcohol use. Pt difficult to engage in conversation regarding amount/frequency, providing minimal answers. Pt denies other substances. Pt reports 1 ATS admission in 2009 and receiving a DUI in 2011. 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 Pt currently has a therapist that he sees weekly, unsure of which agency. Pt educated regarding community supports and resources. Pt has utilized AA in the past and plans to reconnect. Pt is not interested in other tx referrals at this time. Discussed medications for alcohol use disorder with pt, pt states I've thought about trying them. I've heard about them. Upon further discussion, pt interested in initiating naltrexone. Pt provided with many resources and support information as well as t/w card if questions or concerns arise. Discussed with Edilia Blanca APRN.
[2021-11-22] MEDS: Enoxaparin Sodium 40 MG/0.4 ML SYRINGE SUBCUT (21:22)
[2021-11-23] VITALS (9 sets, daily range): BP systolic 134–190; BP diastolic 76–98; PULSE 75–80; RESP 15–20; TEMP 36.6–37.5; O2SAT 90–96
[2021-11-23] MEDS: Lactated Ringers 1,000 ML 200 ML IVCONT (04:33)
[2021-11-23 06:48] LABS: Anion Gap 12 (12-20); Blood Urea Nitrogen 7 mg/dL (9-16); Carbon Dioxide 23 mmol/L (22-29); Chloride 102 mmol/L (96-108); Creatinine Clr Calc Pharmacy 147.1; Estimated Glomerular Filt Rate > 60; Glucose Random 57 mg/dL (60-115); Potassium 3.5 mmol/L (3.3-5.1); Sodium 133 mmol/L (135-145)
[2021-11-23 08:09] LABS: Glucose, Whole Blood 129 mg/dL (60-115)
[2021-11-23] MEDS: PHENobarbitaL 15 MG TABLET 45 MG PO ×2 (09:05→20:09)
[2021-11-23] MEDS: Thiamine HCL 100 MG in 0.9 % Sodium Chloride 100 ML 202 MG IV (09:07)
[2021-11-23] MEDS: 0.9 % Sodium Chloride Flush 3 ML SYRINGE IVFLUSH ×3 (09:15→20:11)
[2021-11-23] MEDS: Nicotine 21 MG PATCH.TD24 TRANSDERMA (09:27)
--- NOTE | 2021-11-23 11:29 | PM.PNNEP ---
Subjective Subjective Date of Service: 11/23/21 Interval history: Events noted. All recent data reviewed Physical Exam Vital Signs: Vital Signs: Last Vital Signs Temp 98.2 F 11/23/21 07:40 Pulse 75 11/23/21 09:55 Resp 20 11/23/21 07:40 BP 134/76 11/23/21 09:55 Pulse Ox 96 11/23/21 09:55 BMI result Body Mass Index 28.1 Const: General: no acute distress Eyes: EOM: EOMs intact bilaterally Neck: Neck: Yes supple Resp: Auscultation: diminished lung sounds Cardio: Rate: regular rate GI: Palpation (GI): Soft to palpation Neuro: General: moves all extremities Objective Data Labs CBC & Chem 7: 11/21/21 11:03 11/23/21 06:10 Labs: Laboratory Results - last 24 hr 11/23/21 11/23/21 06:10 08:05 Sodium 133 L Potassium 3.5 Chloride 102 Carbon Dioxide 23 Anion Gap 12 BUN 7 L Creatinine 0.72 Estim Creat Clear Calc 147.1 Estimated GFR > 60 POC Glucose 129 H Random Glucose 57 L* Calcium 8.0 L Microbiology Microbiology Results: Microbiology 11/21/21 12:19 Blood - Venous Blood Culture - Preliminary No growth after 24 hours. 11/21/21 11:56 Blood - Venous Blood Culture - Preliminary No growth after 24 hours. Procedures Date of Service Date of Service: 11/23/21 Assessment & Plan Assessment and plan (1) Hyponatremia: Status: Acute Assessment and Plan: Likely hypovolemic hyponatremia Clinically improved; DDx Beer Potomania Renal functions good; Vol status improving Potassium replacement to keep it over 4 C/W rest of current supportive care for now Shall closely follow Time Spent With Patient Time: Total time spent is greater than 50% in coordination of care (as documented) at patient's floor/unit and/or counseling patient: Progress Note: Quality Stroke Does the patient have a stroke diagnosis?: No
--- NOTE | 2021-11-23 12:45 | P.PNIM_ITS ---
Subjective Subjective Date of Service: 11/23/21 Review of Systems follow-up alcohol withdrawal Still with some tremors Denies nausea, vomiting, diarrhea Physical Exam Vital Signs: Vital Signs: Last Vital Signs Temp 97.9 F 11/23/21 11:35 Pulse 75 11/23/21 11:35 Resp 18 11/23/21 11:35 BP 157/88 H 11/23/21 11:35 Pulse Ox 96 11/23/21 11:35 BMI result Body Mass Index 28.1 Appearing in no acute distress lung sounds are clear to auscultation heart regular rate rhythm, clear S1, S2 positive bowel sounds, abdomen is soft, nontender neuro patient is alert x3, no focal deficits Objective Data Active Medications Enoxaparin Sodium (Enoxaparin Sodium 40 Mg/0.4 Ml Syringe) 40 mg SUBCUT Q24H [facility]S AT [facility] Last Admin: 11/22/21 21:22 Dose: 40 mg Documented by: YANNA Thiamine HCl 100 mg/ Sodium (Chloride) 101 mls @ 202 mls/hr IV DAILY [facility] Last Admin: 11/23/21 09:07 Dose: 202 mls/hr Documented by: ROSMERY Lactated Ringer's (Lr) 1,000 mls @ 200 mls/hr IVCONT .Q5H [facility] 234 [facility]S AT [facility] Last Admin: 11/23/21 09:31 Dose: Not Given Documented by: ROSMERY Non-Admin Reason: Medication Discontinued Medication (No Benzodiazepines) 1 each MISCELLANE DAILY [facility] 234 [facility] AT [facility] Nicotine (Nicotine 21 Mg Patch.Td24) 21 mg TRANSDERMA DAILY [facility] Last Admin: 11/23/21 09:27 Dose: 21 mg Documented by: ROSMERY Pharmacy Consult (Consult Rx Perform Med Rec) 1 each MISCELLANE ONCE PRN PRN Reason: Consult order Pharmacy Consult (Consult Rx Perform Med Rec) 1 each MISCELLANE ONCE PRN PRN Reason: Consult order Phenobarbital (Phenobarbital 15 Mg Tablet) 45 mg PO BID [facility]; Protocol Stop: 11/23/21 21:01 Last Admin: 11/23/21 09:05 Dose: 45 mg Documented by: ROSMERY Phenobarbital (Phenobarbital 30 Mg Tablet) 30 mg PO BID [facility]; Protocol Stop: 11/25/21 21:01 Phenobarbital (Phenobarbital 15 Mg Tablet) 15 mg PO DAILY [facility] 234 [facility]; Protocol Stop: 11/27/21 09:01 Sodium Chloride (0.9 % Sodium Chloride Flush 3 Ml Syringe) 3 ml IVFLUSH QSHIFT [facility]CLUDE 234 [facility]S AT [facility] Last Admin: 11/23/21 09:15 Dose: 3 ml Documented by: ROSMERY Labs CBC & Chem 7: 11/21/21 11:03 11/23/21 06:10 Labs: Laboratory Results - last 24 hr 11/23/21 11/23/21 06:10 08:05 Anion Gap 12 Estim Creat Clear Calc 147.1 Estimated GFR > 60 POC Glucose 129 H Random Glucose 57 L* Calcium 8.0 L Microbiology Microbiology Results: Microbiology 11/21/21 12:19 Blood Culture - Preliminary Blood - Venous No growth after 24 hours. 11/21/21 11:56 Blood Culture - Preliminary Blood - Venous No growth after 24 hours. Assessment and Plan (1) Hyponatremia: Status: Acute Plan 46-year-old male with history of alcohol abuse, smoker-came to the hospital because of hypotension, dehydration, lactic acidosis, alcohol withdrawal. Alcohol withdrawal, still with some tremors Started on phenobarb protocol, thiamine, folic acid. Continue supportive care Transaminitis. Secondary to alcohol abuse Hypotension/hypovolemia. Resolved IV fluids Monitor blood pressure closely. Tachycardia. Likely secondary to alcohol withdrawal Improving Lactic acidosis. Multifactorial-dehydration/starvation ketosis/alcohol ketoaci dosis might be contributing too Improving Continue to monitor Hyponatremia ?? Beer potomania Hypovolemic hyponatremia Slowly improving Monitor BMP closely seen and evaluated by Nephrology Smoker NRT, discussed importance of smoking cessation Rhabdomyolysis, mild Probably related to recent fall Continue IV fluids, monitor CPK in a.m. DVT prophylaxis with Lovenox Attending Dr. Stephens Patient requires continued hospitalization Due to unsafe discharge at this time, evaluated by Physical therapy. Still with some considerable weakness and balance issues. Currently considering multiple above-mentioned medical issues including alcohol withdrawal, hypokalemia, dehydration, rhabdomyolysis:? Patient possibly benefit from two midnight stays. Quality Stroke Does the patient have a stroke diagnosis?: No VTE Prior VTE?: No VTE Risk Level:: Medical - moderate - high VTE Device Contraindication: N/A - Device Ordered VTE Drug Contraindication: N/A - Med Ordered
--- NOTE | 2021-11-23 15:06 | MHC.CM.PN ---
Addendum entered by Barbara Shaw 11/23/21 15:37: Patient met with the recovery nurse today. DP home with resource info provided by the care team. Patient has arranged for transportation home. Anticipate discharge 1-2 days. Original Note: Male 46 DX ETOH W/D Patient continues on Phenobarb protocol. PT eval this am. PT recommends Pt use a walker for unsteady gait. MD is aware that a script will be needed at discharge.
--- NOTE | 2021-11-23 15:57 | HO.ADDICT_ITS ---
History of Present Illness Date of Service: 11/23/2021 Chief Complaint: Hypotension Dehydration Alcohol Withdrawal Diarrhe Reason for Consult: AUD Requesting physician: Darline Cuello Sources of Information: patient interviewed and chart reviewed Additional Sources of Information: [facility]SRN-Tiana Amaya HPI Narrative: Patient is a 46 year old male currently medically admitted with alcohol withdrawal. Patient met with RSRN earlier and verbalized interest in Naltrexone trial. He reports that he is currently drinking btwn 6-8 beers on weekdays and 12 beers on the weekend. He denies that drinking is impacting his life in any way, despite current medical admission and previous withdrawal seizures and DTs. He has never trialled medications for AUD and is open to Naltrexone. RSRN reviewed medication with him and provided literature as well for patient to review. He denies any other substance use. He is engaged with therapist who he says he is now meeting with monthly. He is unsure how long he has been seeing her or what agency she works for. Not engaged with PCP. Identifies his as a strong support. Discussed other recovery supports and he reports he has previously attended mutual support groups such as AA and knows how to access them. Review of Systems Gastrointestinal: Reports loose stools Diagnostics Vital Signs (24Hr): Vital Signs - 24 hr 11/22/21 20:00 11/22/21 23:45 11/23/21 04:00 Temperature 98.4 F 99.5 F Pulse Rate 82 79 77 Respiratory Rate 16 16 16 Blood Pressure 131/76 145/83 H 151/86 H Pulse Oximetry 96 93 90 L 11/23/21 07:40 11/23/21 09:55 11/23/21 11:35 Temperature 98.2 F 97.9 F Pulse Rate 75 75 75 Respiratory Rate 20 18 Blood Pressure 134/76 134/76 157/88 H Pulse Oximetry 96 96 96 11/23/21 15:19 11/23/21 15:34 Temperature 98.9 F Pulse Rate 75 Respiratory Rate 18 Blood Pressure 164/98 H Pulse Oximetry 94 BMI result Body Mass Index 28.1 Labs Results: 11/21/21 11:03 11/23/21 06:10 Labs: Laboratory Results - last 48 hr 11/21/21 11/21/21 11/21/21 13:46 13:46 14:52 Sodium Potassium Chloride Carbon Dioxide Anion Gap BUN Creatinine Estim Creat Clear Calc Estimated GFR POC Glucose Random Glucose Lactic Acid Cancelled Lactic Acid F/U @ 2Hr 7.1 H* Lactic Acid F/U @ 4Hr Calcium Total Creatine Kinase Procalcitonin 0.10 Urine Osmolality Urine Opiates Screen Urine Fentanyl Screen Ur Barbiturates Screen Ur Phencyclidine Scrn Ur Amphetamines Screen U Benzodiazepines Scrn Urine Cocaine Screen U Marijuana (THC) Screen 11/21/21 11/21/21 11/21/21 14:55 15:29 15:29 Sodium Potassium Chloride Carbon Dioxide Anion Gap BUN Creatinine Estim Creat Clear Calc Estimated GFR POC Glucose Random Glucose Lactic Acid Lactic Acid F/U @ 2Hr Lactic Acid F/U @ 4Hr Calcium Total Creatine Kinase 936 H Procalcitonin Urine Osmolality 516 Urine Opiates Screen Not Detected Urine Fentanyl Screen Not Detected Ur Barbiturates Screen POSITIVE H Ur Phencyclidine Scrn Not Detected Ur Amphetamines Screen Not Detected U Benzodiazepines Scrn Not Detected Urine Cocaine Screen Not Detected U Marijuana (THC) Screen Not Detected 11/21/21 11/21/21 11/22/21 18:17 20:10 08:39 Sodium 130 L 133 L Potassium 3.8 3.2 L Chloride 96 99 Carbon Dioxide 25 26 Anion Gap 13 11 L BUN 10 8 L Creatinine 0.82 0.85 Estim Creat Clear Calc 129.1 124.6 Estimated GFR > 60 > 60 POC Glucose Random Glucose 73 97 Lactic Acid Lactic Acid F/U @ 2Hr Lactic Acid F/U @ 4Hr 2.2 H* Calcium 8.2 L 7.9 L Total Creatine Kinase Procalcitonin Urine Osmolality Urine Opiates Screen Urine Fentanyl Screen Ur Barbiturates Screen Ur Phencyclidine Scrn Ur Amphetamines Screen U Benzodiazepines Scrn Urine Cocaine Screen U Marijuana (THC) Screen 11/23/21 11/23/21 06:10 08:05 Sodium 133 L Potassium 3.5 Chloride 102 Carbon Dioxide 23 Anion Gap 12 BUN 7 L Creatinine 0.72 Estim Creat Clear Calc 147.1 Estimated GFR > 60 POC Glucose 129 H Random Glucose 57 L* Lactic Acid Lactic Acid F/U @ 2Hr Lactic Acid F/U @ 4Hr Calcium 8.0 L Total Creatine Kinase Procalcitonin Urine Osmolality Urine Opiates Screen Urine Fentanyl Screen Ur Barbiturates Screen Ur Phencyclidine Scrn Ur Amphetamines Screen U Benzodiazepines Scrn Urine Cocaine Screen U Marijuana (THC) Screen Imaging Radiology Impressions: ITS Impressions Head CT 11/21/21 11:01 IMPRESSION: Limited exam due to motion artifact. No acute findings. Mild inflammatory changes in the maxillary sinuses. Chest X-Ray 11/21/21 12:50 IMPRESSION: Unremarkable examination. Abdomen/Pelvis CT 11/21/21 13:12 IMPRESSION: Limited exam due to motion artifact. Fatty liver. Fleischner guidelines were followed. Mental Status Exam Mental Status Exam Patient Appearance: Unkempt Level of Consciousness: Awake Mood Description: Blunted Affect Description: Blunted Thought Process: Goal Oriented Thought Content: positive for [place] Judgement: Fair Medications Medications Current Medications Enoxaparin Sodium (Enoxaparin Sodium 40 Mg/0.4 Ml Syringe) 40 mg SUBCUT Q24H [facility] Last Admin: 11/22/21 21:22 Dose: 40 mg Documented by: Thiamine HCl 100 mg/ Sodium (Chloride) 101 mls @ 202 mls/hr IV DAILY [facility] Last Infusion: 11/23/21 14:26 Dose: Infused Documented by: Lactated Ringer's (Lr) 1,000 mls @ 200 mls/hr IVCONT .Q5H [facility] Last Admin: 11/23/21 14:26 Dose: Not Given Documented by: Medication (No Benzodiazepines) 1 each MISCELLANE DAILY [facility] Nicotine (Nicotine 21 Mg Patch.Td24) 21 mg TRANSDERMA DAILY [facility] Last Admin: 11/23/21 09:27 Dose: 21 mg Documented by: Pharmacy Consult (Consult Rx Perform Med Rec) 1 each MISCELLANE ONCE PRN PRN Reason: Consult order Pharmacy Consult (Consult Rx Perform Med Rec) 1 each MISCELLANE ONCE PRN PRN Reason: Consult order Phenobarbital (Phenobarbital 15 Mg Tablet) 45 mg PO BID [facility]; Protocol Stop: 11/23/21 21:01 Last Admin: 11/23/21 09:05 Dose: 45 mg Documented by: Phenobarbital (Phenobarbital 30 Mg Tablet) 30 mg PO BID [facility]; Protocol Stop: 11/25/21 21:01 Phenobarbital (Phenobarbital 15 Mg Tablet) 15 mg PO DAILY [facility]; Protocol Stop: 11/27/21 09:01 Sodium Chloride (0.9 % Sodium Chloride Flush 3 Ml Syringe) 3 ml IVFLUSH QSHIFT [facility] Last Admin: 11/23/21 09:15 Dose: 3 ml Documented by: Allergies Allergies Allergy/AdvReac Type Severity Reaction Status Date / Time No Known Drug Allergies Allergy Unknown Verified 11/21/21 10:19 Assessment & Plan Assessment & Plan (1) Alcohol use disorder, severe, dependence: Status: Acute Code(s): F10.20 - Alcohol dependence, uncomplicated Assessment and Plan: * Naltrexone to be started closer to discharge. * Patient would like tp wait before scheduling follow up appt. [facility] infomation already provided I spent ___35___ minutes with the patient and/or on the patient floor today, greater than?50% of which was spent counseling/coordinating care. [facility] Social History Social History Household Members: Family Housing: House Do you presently have visiting nurse or other home services: No Alcohol intake: current Alcohol intake frequency: 3 or more drinks per day Alcohol type: beer Patient Tobacco Use Status: Current everyday Tobacco user Tobacco use type: Cigarette Cigarettes Per Day: 8 service: No
[2021-11-24 02:50] LABS: CDiff Gene PCR NEGATIVE (Negative)
[2021-11-24 02:54] LABS: Leukocytes Stool Qualitative FEW: < 2/OIF (NEGATIVE)
[2021-11-24 03:20] VITALS: BP 182/92; PULSE 75; RESP 14; TEMP 37.7; O2SAT 93
[2021-11-24] MEDS: amLODIPine Besylate 5 MG TABLET PO (03:50)
[2021-11-24] MEDS: Lactated Ringers 1,000 ML 50 ML IVCONT (03:51)
[2021-11-24 07:37] VITALS: BP 159/90; PULSE 70; RESP 18; TEMP 36.7; O2SAT 96
[2021-11-24] MEDS: PHENobarbitaL 30 MG TABLET PO (09:15)
[2021-11-24] MEDS: Nicotine 21 MG PATCH.TD24 TRANSDERMA (09:16)
[2021-11-24] MEDS: Thiamine HCL 100 MG in 0.9 % Sodium Chloride 100 ML 202 MG IV (09:17)
[2021-11-24] MEDS: 0.9 % Sodium Chloride Flush 3 ML SYRINGE IVFLUSH (09:18)
[2021-11-24 09:33] VITALS: BP 159/90; PULSE 70; O2SAT 96
[2021-11-24 11:19] VITALS: BP 125/70; PULSE 69; RESP 18; TEMP 36.9; O2SAT 97
[2021-11-24 11:35] LABS: Alanine Aminotransferase 56 U/L (0-40); Albumin Level 2.8 g/dL (3.5-5.0); Alkaline Phosphatase 84 U/L (39-117); Aspartate Amino Transferase 85 U/L (5-37); Bilirubin Direct 0.5 mg/dL (0.0-0.5); Total Protein 5.7 g/dL (6.5-8.0)
--- NOTE | 2021-11-24 12:32 | PM.DS ---
DS: Providers Provider Date of Service: 11/24/21 Date of admission: 11/21/21 17:47 Date of discharge: 11/24/21 Primary care physician: Unknown Physician Consults: 11/21/21 17:47 Consult to Nephrology Routine Consulting Provider: Wilson Jordan Reason for consultation: hypotension, dehydration Has provider been notified: No 11/21/21 18:50 Consult to Care Team Routine Comment: Reason for consultation: alcohol use Has provider been notified: No 11/23/21 15:54 Addiction Medicine Routine Consulting Provider: Edilia Blanca Reason for consultation: alcohol abuse Has provider been notified: No Attending physician on discharge: Lopez Stephens Discharging clinician: Diana Mckeon DS: Diagnosis Discharge Diagnosis (1) Alcohol use disorder, severe, dependence: Status: Acute (2) Hyponatremia: Status: Acute (3) Alcohol withdrawal: Status: Acute DS: Summary Hospital Course Hospital Course: From H&P on day of admission 46-year-old male with no significant past medical history, does not follow with any doctor, every day drinks alcohol 6 packs beer as per patient-came to the hospital because patient is feeling tremulous, as nausea vomiting and diarrhea last night- he said he also vomited few times but did not bring up any blood, diarrhea was also mostly watery, denies any abdominal pain. Denies any fever or chills. Denies any cough or phlegm or weakness numbness or any blurry vision or headache. Also he fell down a week ago he said his slipped on snow and has a bruise on the right eyebrow area.? Denies any loss of consciousness at that time. Currently denies any nausea vomiting or diarrhea-says it stopped. He is not eating well from at least 2-3 days, keep drinking alcohol, and had above diarrhea and nausea vomiting last night. In the ED patient found to have hypotension, also tachycardia, tachypnea as well as lactic acidosis: Low-grade temp 100.2*f Hypotension and tachycardia and lactic acidosis-was thought to be related to dehydration/starvation ketosis/alcoholic ketoacidosis. ED physician discussed the case with ICU:? Case discussed-thought to be less likely due to sepsis rather than dehydration. Patient received 3 L of fluid-lactic acidosis and bicarb is improving. In addition patient was found to have hyponatremia Serum and urine osmolality added Stool studies also added. Chest x-ray negative, CT head seems fine, UA negative, CT of abdomen:? Grossly fine except fatty liver infiltration. Past medical history:? None as per the patient Social history: Patient lives with his , smokes half pack a day, alcohol every day as above.? No recreation drug use. Patient denies any surgical history. Denies any medication allergy Alcohol use disorder with Alcohol withdrawal. Patient was treated with phenobarb protocol, thiamine, folic acid and IVF. He was monitored on the CIWA score. His withdrawal symptoms steadily improved. He was seen by Physical therapy who recommended home with no services. Recommend complete abstinence from alcohol. Patient was seen by care team/Addiction Medicine inpatient indicated interest in starting naltrexone which will be sent by addiction medicine team to his pharmacy. Transaminitis.?Secondary to alcohol abuse. Imaging showed fatty liver disease. LFTs trended down. Recommend complete abstinence from alcohol as above. Hypotension/hypovolemia.? Secondary to dehydration, improved with IV fluids. No source of infection was identified. UA, CXR, c.dif and abdominal/pelvic CT negative. He was also covid and flu negative. Tachycardia.? Secondary to alcohol withdrawal and hypovolemia. Heart rate has improved with resolution of etoh withdrawal and IVF. Lactic acidosis. Multifactorial-dehydration/starvation ketosis/alcohol ketoacidosis might be contributing too. Lactic acid trended down with IV fluid. Hyponatremia secondary to hypovolemic hyponatremia versus Beer potomania. Seen in consultation by nephrology. Sodium improved to 133. Smoker. Treated with NRT, discussed importance of smoking cessation Rhabdomyolysis, mild Probably related to recent fall. CPK trending down [facility] IVF Patient is now stable for discharge home. He is encouraged to follow up with PCP and avoid alcohol. Time Spent with Patient Time attestation: Total time spent providing and/or coordinating discharge services: Discharge coordination time: Greater than 30 minutes Quality: Stroke Does the patient have a stroke diagnosis?: No Physical Exam Vital Signs: Vital Signs: Last Vital Signs Temp 98.4 F 11/24/21 11:19 Pulse 69 11/24/21 11:19 Resp 18 11/24/21 11:19 BP 125/70 11/24/21 11:19 Pulse Ox 97 11/24/21 11:19 BMI result Body Mass Index 28.1 Const: General: cooperative, comfortable, alert and awake Nutritional Appearance: average body habitus Resp: Effort & Inspection: normal respiratory effort and able to speak in complete sentences Cardio: Rhythm: regular rhythm Heart sounds: S1 normal heart sound present and S2 normal heart sound present GI: Inspection: No distended Palpation (GI): Soft to palpation and nontender Skin: Other: bruising right arm Neuro: Other: no tremors; grossly non-focal Extrem: Other: no lege edema DS: Data Data Completed and Pending Labs on day of discharge: Laboratory Results - last 24 hr 11/24/21 11/24/21 11/24/21 01:34 01:48 11:01 Total Bilirubin 1.0 Direct Bilirubin 0.5 AST 85 H ALT 56 H Alkaline Phosphatase 84 Total Creatine Kinase 545 H D Total Protein 5.7 L Albumin 2.8 L Stool Leukocytes, Qual FEW: < 2/OIF C. difficile Tox B Gene NEGATIVE Preliminary micro results at discharge 11/21/21 12:19 Blood Culture - Preliminary Blood - Venous No growth after 48 hours. 11/21/21 11:56 Blood Culture - Preliminary Blood - Venous No growth after 48 hours. Discharge Plan Discharge Patient Disposition: Home, Self-Care Discharge Diagnosis: alcohol withdrawal hyponatremia Referrals: Edilia Blanca CNP [Nurse Practitioner] - 1 Week Physician,Tae J [Primary Care Provider] - 1 Week Discharge Medications: New thiamine HCl (vitamin B1) 100 mg tablet 100 mg PO DAILY 30 Days Qty: 30 0RF folic acid 1 mg tablet 1 mg PO DAILY 30 Days Qty: 30 0RF naltrexone 50 mg tablet 50 mg PO DAILY Qty: 30 0RF Discharge Orders: Discharge Order (Routine); Ordered 11/24/21 Ordered By: Diana Mckeon Activity on Discharge: As tolerated Stand Alone Forms: Patient Portal Discharge page Care Plan Goals: Complete abstinence from alcohol Health Concerns: Alcohol withdrawal Low sodium level secondary to alcohol use Mild rhabdomyolysis Plan of Treatment: Recommend complete abstinence from alcohol Naltrexone will be sent to pharmacy by Addiction Medicine team Call to schedule follow up with PCP Assessment: See discharge summary Discharge Date/Time: 11/24/21 13:49
--- NOTE | 2021-11-24 13:32 | MHC.CM.PN ---
Male 46 DX ETOH W/D Patient is discharged to home with community resource info provided by [facility]. He has arranged for private transportation.
== END 2021-11-24 13:49 | disposition home or self-care (01) | DRG 426 ==
LOC: HO.ED 16:15 → HO.EDOVER 18:00 → HO.IMC 19:22
PROVIDERS: Nurse Practitioner Acute Care; Physician Assistant; Admitting Provider Internal Medicine; Emergency Provider Emergency Medicine; Visit Provider Physician Assistant Medical
DX: E87.1 Hypo-osmolality and hyponatremia (principal); E87.2 Acidosis; I95.9 Hypotension, unspecified; M62.82 Rhabdomyolysis; E86.0 Dehydration; F10.239 Alcohol dependence with withdrawal, unspecified; E87.6 Hypokalemia; F17.210 Nicotine dependence, cigarettes, uncomplicated; Z20.822 Contact with and (suspected) exposure to COVID-19; Z71.6 Tobacco abuse counseling; Z79.899 Other long term (current) drug therapy
CPT/HCPCS: 36415; 70450; 71045; 74176; 80048; 80076; 80143; 80179; 80307; 81003; 82077; 82550; 82803; 82947; 83605; 83690; 83735; 83930; 83935; 84145; 85025; 87040; 87045; 87046; 87493; 87502; 87635; 89055; 93005; 96361; 96365; 96367; 96372; 96375; 96376; 97116; 97162; 99285; 99291; J1650; J1885; J2060; J2543; J2560; J3411